=== PATIENT | male | born 1985 | race African-American/Black ===

== ENCOUNTER 2021-11-25 13:38 | Emergency (ER) | payer SELFPAY ==
--- OUTSIDE RECORDS SUMMARY | 2021-11-25 13:40 | XMS REPORT | Continuity of Care Document ---
:1985 Author Organization [facility] t Address [address] [place] [address] Care Team Providers Name Role Phone Unavailable Unavailable Unavailable Payers Payer Name Policy Type Policy Number Effective Date Expiration Date S ource Problems This patient has no known problems. Allergies, Adverse Reactions, Alerts Allergy Allergy Status Severity Reaction(s) Onset Inactive Treating Comm ents Source Name Type Date Date Clinician No Known DA Active U [facility] All[facility]ie 11-30 [place] s 00:00: d 00 [facility] Medications This patient has no known medications. Procedures This patient has no known procedures. Encounters Start End Encounter Admission Attending Care Care Encounter Source Date/Time Date/Time Type Type Clinicians Facility Department ID 2018-11-29 2018-11-29 [facility] [id number] [address] [place] [address] 22:19:00 22:19:00 Health Results Test Description Test Time Test Comments Results Result Comments Source URINALYSIS COMPLETE 2018 00:40:00 Test Item Value Reference Range Interpretation Comme nts UA COLOR (test code = COLU) YELLOW discript YEL/STRAW UA APPEARANCE (test code = APPU) CLEAR discript CLEAR UA GLUCOSE DIPSTICK (test code = DGLUU) NEGATIVE mg/dL NEG UA BILIRUBIN DIPSTICK (test code = BILU) NEGATIVE mg/dL NEG UA KETONE DIPSTICK (test code = KETU) TRACE mg/dL NEG UA SPECIFIC GRAVITY (test code = SGU) 1.025 SG 1.005-1.030 UA BLOOD DIPSTICK (test code = ELSIE) TRACE mg/DL NEG UA PH DIPSTICK (test code = ELDER) 6.0 pH UNITS 5.0-7.0 UA PROTEIN DIPSTICK (test code = PROU) NEGATIVE mg/dL NEG UA UROBILINIOGEN DIPSTICK (test code = URO) 0.2 mg/dL <2.0 UA NITRITE DIPSTICK (test code = DARBY) NEGATIVE SCREEN NEG UA LEUKOCYTE ESTERASE DIPSTICK (test code = LEUU) NEGATIVE Leuk/mcL NEGATIVE UA WBC (test code = WBCU) 1-3 #WBC/HPF 0-3 UA RBC (test code = RBCU) 1-3 #RBC/HPF 0-3 UA SQUAMOUS CELLS (test code = SQU) TRACE /HPF NONE UA MUCUS (test code = MUCU) TRACE /LPF NONE SEEN URINALYSIS [id number] 00:31:00 Test Item Value Reference Range Interpretation Comments UA COLOR (test code = COLU) YELLOW discript YEL/STRAW UA APPEARANCE (test code = CLEAR discript CLEAR APPU) UA GLUCOSE DIPSTICK (test NEGATIVE mg/dL NEG code = DGLUU) UA BILIRUBIN DIPSTICK (test NEGATIVE mg/dL NEG code = BILU) UA KETONE DIPSTICK (test TRACE mg/dL NEG code = KETU) UA SPECIFIC GRAVITY (test 1.025 SG 1.005-1.030 code = SGU) UA BLOOD DIPSTICK (test TRACE mg/DL NEG code = ELSIE) UA PH DIPSTICK (test code = 6.0 pH UNITS 5.0-7.0 ELDER) UA PROTEIN DIPSTICK (test NEGATIVE mg/dL NEG code = PROU) UA UROBILINIOGEN DIPSTICK 0.2 mg/dL <2.0 (test code = URO) UA NITRITE DIPSTICK (test NEGATIVE SCREEN NEG code = DARBY) UA LEUKOCYTE ESTERASE NEGATIVE Leuk/mcL NEGATIVE DIPSTICK (test code = LEUU) BASIC METABOLIC [id number] 00:13:00 Test Item Value Reference Range Interpretation Comments SODIUM (test code = NA) 139 mmol/L 134-147 N POTASSIUM (test code = 3.2 mmol/L 3.4-5.0 L K) CHLORIDE (test code = 102 mmol/L 100-108 N CL) CARBON DIOXIDE (test 31 mmol/L 21-32 N code = CO2) ANION GAP (test code = 6.0 GAP calc 4.0-15.0 N GAP) GLUCOSE (test code = 107 MG/DL 70-110 N GLU) BLOOD UREA NITROGEN 13 MG/DL 7-18 N (test code = BUN) GLOMERULAR FILTRATION >=60 max estimate >60 RATE (test code = GFR) estGFR CREATININE (test code = 1.2 MG/DL 0.8-1.3 N CREAT) CALCIUM (test code = CA) 8.0 MG/DL 8.5-10.1 L HEPATIC FUNCTION [id number] 00:13:00 Test Item Value Reference Range Interpretation Comments TOTAL PROTEIN (test code = PROT) 7.2 G/DL 6.4-8.2 N ALBUMIN (test code = ALB) 3.7 G/DL 3.4-5.0 N BILIRUBIN TOTAL (test code = 0.30 MG/DL 0.2-1.2 N BILT) BILIRUBIN DIRECT (test code = < 0.10 MG/DL 0.00-0.30 N BILD) BILIRUBIN INDIRECT (test code = 0.20 MG/DL 0.2-1.2 N BILIND) SGOT/AST (test code = AST) 25 Unit/L 15-37 N SGPT/ALT (test code = ALT) 20 Unit/L 12-78 N ALKALINE PHOSPHATASE TOTAL (test 43 Unit/L 50-136 L code = ALKP) CBC W/AUTO [id number] 23:49:00 Test Item Value Reference Range Interpretation Comments WHITE BLOOD CELL (test code = 9.3 K/mm3 3.5-11.0 N WBC) RED BLOOD CELL (test code = RBC) 4.78 M/mm3 4.70-6.10 N HEMOGLOBIN (test code = HGB) 13.3 G/DL 12.3-15.9 N HEMATOCRIT (test code = HCT) 40.4 % 35.8-46.7 N MEAN CELL VOLUME (test code = 84.5 Fl 86.3-98.9 L MCV) MEAN CELL HGB (test code = MCH) 27.8 pg 28.9-34.4 L MEAN CELL HGB CONCETRATION (test 32.9 G/DL 32.1-34.5 N code = MCHC) RED CELL DISTRIBUTION WIDTH (test 14.0 SD 11.5-14.5 N code = RDW) PLATELET COUNT (test code = PLT) 227.0 K/mm3 150-450 N MEAN PLATELET VOLUME (test code = 10.30 fL 7.0-9.6 H MPV) NEUTROPHIL % (test code = NT%) 62.5 % 40-76 N LYMPHOCYTE % (test code = LY%) 25.3 % 20.5-51.1 N MONOCYTE % (test code = MO%) 9.8 % 1.7-9.3 H EOSINOPHIL % (test code = EO%) 2.2 % 0.0-6.0 N BASOPHIL % (test code = BA%) 0.2 % 0.0-2.0 N NEUTROPHIL # (test code = NT#) 5.79 K/mm3 1.8-7.6 N LYMPHOCYTE # (test code = LY#) 2.3 K/mm3 0.6-3.0 N MONOCYTE # (test code = MO#) 0.9 K/mm3 0.2-1.5 N EOSINOPHIL # (test code = EO#) 0.2 K/mm3 0.0-0.4 N BASOPHIL # (test code = BA#) 0.0 K/mm3 0.0-0.2 N MANUAL DIFF REQUIRED (test code = NO DIFF/SCN CRITERIA MDIFF) - XR ABDOMEN 1 [id number] 23:36:00 Name: EZEQUIEL CAMACHO [facility] : 1985 Age/S: 32 / M [id number] Unit #: [id number] Loc: [place] [address] Phys: Kaley Richardson MD Acct: [id number] Dis Date: Status: REG ER PHONE #: [phone] Exam Date: 12/20/2018 2336 FAX #: Reason: Abdominal Pain EXAMS: CPT: [id number] XR ABDOMEN 1 V [id number] Fluoro Time: DAP (Gy m2): Air Kerma (mGy): - XR ABDOMEN 1 V Location:9 After hours services provided 12/20/2018 11:35 PM Indication: Abdominal Pain Comparison: Not available Findings: Nonobstructive bowel gas pattern. No free air or free fluid. No radiopaque calculi. The bones are unremarkable. Impression: No acute abdominal abnormality. at 2336 Reported and signed by: Rodrigo Wright M.D. CC: Kaley Richardson MD PAGE 1 Signed Report N chandrika: EZEQUIEL CAMACHO [facility] : 1985 Age/S: 32 / M [id number] Unit #: [id number] Loc: [place] [address] Phys: Kaley Richardson MD Acct: [id number] Dis Date: Status: REG ER PHONE #: [phone] Exam Date: 12/20/2018 2334 FAX #: Reason: Abdominal Pain EXAMS: CPT: [id number] XR ABDOMEN 1 V [id number] Fluoro Time: DAP (Gy m2): Air Kerma (mGy): <Continued> Technologist: Patric Parmar, RT(R)(CT); Chuy Ribeiro, RT(R)(CT) Trnazb Date/Time: 12/20/2018 (6989) [email or web address] Orig Print D/T: S: 12/20/2018 (4845) PAGE 2 Signed Report
[2021-11-25] MEDS ORDERED: ONDANSETRON 4 MG (ODT) TAB ONE (15:37)
[2021-11-25] MEDS ORDERED: FAMOTIDINE 20 MG TAB ONE (15:37)
[2021-11-25 16:36] LABS: SARS-COV-2 RT PCR NEGATIVE (NEGATIVE)
--- NOTE | 2021-11-25 16:47 | ER ---
Nurse's Notes [facility] Name: Meño Quiroga Age: 35 yrs Sex: Male : 1985 Arrival Date: 11/25/2021 Time: 13:39 Bed 10 Private MD: Diagnosis: Nausea with vomiting, unspecified Presentation: 11/25 14:21 Chief complaint: Patient states: Sudden onset of feeling hot, sweaty, fatigue, ll1 sleepiness, acid reflux with 1 episode of N/V since last night. + decreased urination since last night, but no dysuria. Coronavirus screen: Vaccine status: Patient reports being unvaccinated. Client denies travel out of the [place] in the last 14 days. fatigue, nausea, vomiting. Ebola Screen: Patient denies travel to an Ebola-affected area in the 21 days before illness onset. Initial Sepsis Screen: Does the patient meet any 2 criteria? No. Patient's initial sepsis screen is negative. Does the patient have a suspected source of infection? Yes: Acute abdominal pain. Risk Assessment: Do you want to hurt yourself or someone else? Patient reports no desire to harm self or others. Onset of symptoms was November 24, 2021. 14:21 Method Of Arrival: Ambulatory ll1 14:21 Acuity: ASHLEE 4 ll1 Triage Assessment: 14:23 General: Appears in no apparent distress. Behavior is calm, cooperative, appropriate ll1 for age. Pain: Complains of pain in abdomen Quality of pain is described as aching. Neuro: No deficits noted. Cardiovascular: No deficits noted. Respiratory: No deficits noted. GI: Abdomen is round Reports lower abdominal pain, upper abdominal pain, cramping, nausea, vomiting. Historical: - Allergies: 14:20 No Known Allergies; ll1 - PMHx: 14:20 None; ll1 - PSHx: 14:20 None; ll1 - Immunization history:: Client reports having NOT received the Covid vaccine. Flu vaccine status is unknown. - Social history:: Smoking status: Patient reports the use of cigarette tobacco products, cigars. Screenin:40 Abuse screen: Denies threats or abuse. Nutritional screening: No deficits noted. ll1 Tuberculosis screening: No symptoms or risk factors identified. Fall Risk Gait- Weak (10 pts.). Total Garcia Fall Scale indicates No Risk (0-24 pts). Assessment: 15:18 Reassessment: No changes from previously documented assessment. Patient and/or family ll1 updated on plan of care and expected duration. Pain level reassessed. Patient is alert, oriented x 3, equal unlabored respirations, skin warm/dry/pink. 15:40 Reassessment: No changes from previously documented assessment. Patient and/or family ll1 updated on plan of care and expected duration. Pain level reassessed. Patient is alert, oriented x 3, equal unlabored respirations, skin warm/dry/pink. 16:40 Reassessment: No changes from previously documented assessment. Patient and/or family ll1 updated on plan of care and expected duration. Pain level reassessed. Patient is alert, oriented x 3, equal unlabored respirations, skin warm/dry/pink. 17:17 GI: Bowel sounds present X 4 quads. Abd is soft and non tender X 4 quads. ll1 Vital Signs: 14:21 BP 159 / 107; Pulse 60; Resp 17; Temp 98.0; Pulse Ox 100% ; Weight 104.33 kg; Pain 4/10;ll1 17:17 BP 111 / 72; Pulse 52; Resp 16; ll1 ED Course: 13:39 Patient arrived in ED. ds1 14:20 Arm band placed on. ll1 14:23 Triage completed. ll1 15:18 Rosi Camarena RN is Primary Nurse. ll1 15:18 Patient placed in an exam room, on a stretcher. ll1 15:27 Binh Ruelas PA is PHCP. cp 15:27 Binh Landry MD is Attending Physician. cp 15:40 Patient has correct armband on for positive identification. Bed in low position. Call ll1 light in reach. Side rails up X 1. Cardiac monitoring not applicable on this patient. 17:17 No provider procedures requiring assistance completed. Patient did not have IV access ll1 during this emergency room visit. Administered Medications: 15:40 Drug: Zofran (Ondansetron) 4 mg Route: PO; ll1 17:19 Follow up: Response: No adverse reaction ll1 15:40 Drug: Pepcid (famotidine) 20 mg Route: PO; ll1 17:18 Follow up: Response: No adverse reaction ll1 Outcome: 16:47 Discharge ordered by . cp 17:18 Discharged to home ambulatory. ll1 17:18 Condition: stable 17:18 Discharge instructions given to patient, Instructed on discharge instructions, follow up and referral plans. medication usage, Demonstrated understanding of instructions, follow-up care, medications, Prescriptions given X 2. 17:19 Patient left the ED. ll1 Signatures: Kiley Lopez ds1 Binh Ruelas PA PA cp Lewis, Lynsay, RN RN ll1
--- NOTE | 2021-11-25 16:48 | EDPHYS ---
Physician Documentation [facility] Name: Meño Quiroga Age: 35 yrs Sex: Male : 1985 Arrival Date: 11/25/2021 Time: 13:39 Bed 10 Private MD: YANN Physician Binh Landry HPI: 11/25 15:40 This 35 yrs old Black Male presents to ER via Ambulatory with complaints of Abdominal cp Pain, Fever. 15:40 The patient presents with abdominal pain. Onset: The symptoms/episode began/occurred cp last night. Associated signs and symptoms: Pertinent positives: nausea and vomiting, fever, Pertinent negatives: diarrhea. The symptoms are described as burning. Patient reports heartburn worse. Historical: - Allergies: 14:20 No Known Allergies; ll1 - PMHx: 14:20 None; ll1 - PSHx: 14:20 None; ll1 - Immunization history:: Client reports having NOT received the Covid vaccine. Flu vaccine status is unknown. - Social history:: Smoking status: Patient reports the use of cigarette tobacco products, cigars. ROS: 15:45 Constitutional: Negative for fever, poor PO intake. cp 15:45 Eyes: Negative for injury, pain, redness, and discharge. cp 15:45 ENT: Negative for drainage from ear(s), ear pain, difficulty swallowing, difficulty handling secretions. 15:45 Cardiovascular: Negative for chest pain, palpitations. 15:45 Respiratory: Negative for cough, shortness of breath, wheezing. 15:45 Abdomen/GI: Positive for abdominal pain, nausea and vomiting, Negative for diarrhea, constipation. 15:45 Neuro: Negative for altered mental status, weakness. 15:45 All other systems are negative. Exam: 15:50 Constitutional: The patient appears in no acute distress, alert, awake, non-toxic, well cp developed, well nourished, obese. 15:50 Head/Face: Normocephalic, atraumatic. cp 15:50 Eyes: Periorbital structures: appear normal, Conjunctiva: normal, no exudate, no injection, Sclera: no appreciated abnormality, Lids and lashes: appear normal, bilaterally. 15:50 ENT: External ear(s): are unremarkable, Ear canal(s): are normal, clear, TM's: dullness, bilaterally, Nose: is normal, Mouth: Lips: moist, Oral mucosa: moist, Posterior pharynx: Airway: no evidence of obstruction, patent. 15:50 Neck: ROM/movement: is normal, is supple, without pain, no range of motions limitations, no meningismus, Lymph nodes: no appreciated lymphadenopathy. 15:50 Chest/axilla: Inspection: normal. 15:50 Cardiovascular: Rate: normal, Rhythm: regular. 15:50 Respiratory: the patient does not display signs of respiratory distress, Respirations: normal, no use of accessory muscles, no retractions, labored breathing, is not present, Breath sounds: are clear throughout, no decreased breath sounds, no stridor, no wheezing. 15:50 Abdomen/GI: Inspection: obese Bowel sounds: active, all quadrants, Palpation: abdomen is soft and non-tender, in all quadrants, rebound tenderness, is not appreciated, voluntary guarding, is not appreciated, involuntary guarding, is not appreciated. 15:50 Back: pain, is absent, ROM is normal. 15:50 Neuro: Orientation: to person, place \\T\\ time. Mentation: is normal. Vital Signs: 14:21 BP 159 / 107; Pulse 60; Resp 17; Temp 98.0; Pulse Ox 100% ; Weight 104.33 kg; Pain 4/10;ll1 17:17 BP 111 / 72; Pulse 52; Resp 16; ll1 MDM: 15:35 Patient medically screened. cp 15:45 Differential diagnosis: appendicitis, cholecystitis, Cholelithiasis, gastritis, cp non-specific abd pain, pancreatitis, Peptic Ulcer Disease, urinary tract infection. 16:46 Data reviewed: vital signs, nurses notes, lab test result(s). cp 16:46 Counseling: I had a detailed discussion with the patient and/or guardian regarding: the cp historical points, exam findings, and any diagnostic results supporting the discharge/admit diagnosis, lab results, to return to the emergency department if symptoms worsen or persist or if there are any questions or concerns that arise at home. Response to treatment: the patient's symptoms have markedly improved after treatment, and as a result, I will discharge patient. ED course: VSS. Nausea improved. No vomiting observed while monitoring patient in ED. Exam of abdomen unremarkable. Will discharge to home for continued monitoring. 11/25 15:34 Order name: COVID-19/FLU A+B (Document "Date of Onset" if Symptomatic); Complete Time: iw 16:38 11/25 16:39 Interpretation: Reviewed. cp 11/25 15:50 Order name: Urine Dipstick-Ancillary (obtain specimen); Complete Time: 15:52 cp Administered Medications: 15:40 Drug: Zofran (Ondansetron) 4 mg Route: PO; ll1 17:19 Follow up: Response: No adverse reaction ll1 15:40 Drug: Pepcid (famotidine) 20 mg Route: PO; ll1 17:18 Follow up: Response: No adverse reaction ll1 Disposition Summary: 11/25/21 16:47 Discharge Ordered Location: Home cp Problem: new cp Symptoms: have improved cp Condition: Stable cp Diagnosis - Nausea with vomiting, unspecified cp Followup: cp - With: Private Physician - When: 2 - 3 days - Reason: Worsening of condition Discharge Instructions: - Discharge Summary Sheet cp - Nausea, Adult cp Forms: - Medication Reconciliation Form cp - Thank You Letter cp - Antibiotic Education cp - Prescription Opioid Use cp Prescriptions: - Protonix 40 mg Oral Tablet - take 1 tablet by ORAL route once daily; 30 tablet; Refills: 0, Product cp Selection Permitted - Zofran 4 mg Oral Tablet - take 1 tablet by ORAL route every 12 hours As needed; 20 tablet; Refills: 0, cp Product Selection Permitted Addendum: 11/27/2021 07:22 Co-signature as Attending Physician, Binh Landry MD I agree with the assessment and c keenan plan of care. Signatures: Dispatcher [employer] EDBinh Mandel MD MD cha Williams, Irene RN Binh Manzo PA PA cp Lewis, Lynsay, RN RN ll1 Corrections: (The following items were deleted from the chart) 11/25 16:48 16:47 Nausea cp cp
[2021-11-25 17:26] VITALS: TEMP 98; O2SAT 100
[2021-11-25 17:28] VITALS: BP 111/72
== END 2021-11-25 17:19 | disposition home or self-care (01) ==
LOC: ER 13:38
DX: R11.2 Nausea with vomiting, unspecified (principal); Z20.822 Contact with and (suspected) exposure to COVID-19; Z72.0 Tobacco use
CPT/HCPCS: 0240U; 99283

== ENCOUNTER 2023-08-12 12:06 | Emergency (ER) | payer SELFPAY ==
--- OUTSIDE RECORDS SUMMARY | 2023-08-12 12:13 | XMS REPORT | Continuity of Care Document ---
:[address] [facility] t Address [address] [place] [address] Care Team Providers Name Role Phone Unavailable Unavailable Unavailable Payers Payer Name Policy Type Policy Number Effective Date Expiration Date S ource Problems Condition Condition Condition Status Onset Resolution Last Treating Co mments Source Name Details Category Date Date Treatment Clinician Date Abdominal Abdominal Disease Active [facility] pain, pain, Health generalize generalize d d Nausea and Nausea and Disease Active H arris vomiting vomiting Health Diarrhea Diarrhea Disease Active [facility] Allergies, Adverse Reactions, Alerts Allergy Allergy Status Severity Reaction(s) Onset Inactive Treating Comm ents Source Name Type Date Date Clinician No Known DA Active [facility] 11-30 [facility] Social History Social Habit Start Date Stop Date Quantity Comments Source Gender identity [facility] alth Sexual orientation [facility] Sex Assigned At [birth year] [facility] Health 00:00:00 00:00:00 Medications This patient has no known medications. Procedures This patient has no known procedures. Plan of Care Planned Activity Planned Date Details Comments Source Future Scheduled Test 2023-08-30 00:00:00 IMM Influenza [facility] Seasonal (>/= 19 yrs) [code = IMM Influenza Seasonal (>/= 19 yrs)] Future Scheduled Test 1987-06-20 00:00:00 COVID-19 Vaccine (#1) [facility] [code = COVID-19 Vaccine (#1)] Encounters Start End Encounter Admission Attending Care Care Encounter Source Date/Time Date/Time Type Type Clinicians Facility Department ID 2018-11-29 2018-11-29 Emergency [facility] [id number] 1 [place] 22:19:00 22:19:00 Health Results Test Description Test [...] = MUCU) TRACE /LPF NONE SEEN URINALYSIS [id number] 00:31:00 Test Item Value Reference Range Interpretation [...] DIPSTICK (test code = LEUU) BASIC METABOLIC [id number] 00:13:00 Test Item Value Reference Range Interpretation [...] CA) 8.0 MG/DL 8.5-10.1 L HEPATIC FUNCTION [id number] 00:13:00 Test Item Value Reference Range Interpretation [...] 50-136 L code = ALKP) CBC W/AUTO [id number] 23:49:00 Test Item Value Reference Range Interpretation [...] DIFF/SCN CRITERIA MDIFF) - XR ABDOMEN 1 [id number] 23:36:00 Name: EZEQUIEL CAMACHO [facility] : 1985 Age/S: 32 / M [address] Unit #: [id number] Loc: [place] [address] Phys: Kaley Richardson MD Acct: [id number] Dis Date: Status: REG ER PHONE #: [phone] Exam Date: 12/20/2018 2334 FAX #: Reason: Abdominal Pain EXAMS: CPT: [id number] XR ABDOMEN 1 V 32122 Fluoro Time: DAP (Gy m2): Air Kerma (mGy): - XR ABDOMEN 1 V Location:9 After hours services provided 12/20/2018 11:35 PM Indication: Abdominal Pain Comparison: Not available Fin dings: Nonobstructive bowel gas pattern. No free air or free fluid. No radiopaque calculi. The bonesare unremarkable. Impression: No acute abdominal abnormality. at 2336 Reported and signed by: Rodrigo Wright M.D. CC: Kaley Richardson MD PAGE 1 Signed Report Name: EZEQUIEL CAMACHO [facility] : 1985 Age/S: 32 / M [id number] Unit #: [id number] Loc: [place] [address] Phys: Fawn Richardson Acct: [id number] Dis Date: Status: REG ER PHONE #: [phone] Exam Date: 12/20/2018 2334 FAX#: Reason: Abdominal Pain EXAMS: CPT: [id number] XR ABDOMEN 1 V 98983 Fluoro Time: DAP (Gy m2): Air Kerma (mGy): (Continued) Technologist: Patric Parmar, RT(R)(CT); Chuy Ribeiro RT(R)(CT) Trnakb Date/Time: 12/20/2018 (2336) [email or web address] Orig Print D/T: S: 12/20/2018 (8013) PAGE 2 Signed Report Notes Date/Time Note Provider Source 2018-12-20 23:33:00-00:00 [facility] ([facility]) EMERGENCY PROVIDER REPORT REPORT#:[id number] REPORT STATUS: Signed DATE:12/20/18 TIME:2332 PATIENT: EZEQUIEL CAMACHO UNIT #: [id number] ROOM/BED: : 86 AGE: 33 SEX: M PCP PHYS: No Primar y or Family Physician SERVICE AUTHOR: Kaley Richardson MD * ALL edits or amendments must be made on the el [place]/computer document * HPI-Abd Pain M Under 40 General Confirmed Patient Yes Patient Type New patient Initial Greet Date/Time 12/20/182306 Presentation Chief Complaint Abdominal pain, Vomiting moderat e Hx Obtained From Patient Onset Occurred Days ago (3) Symptom Duration Since onset Progression since Onset Constant Caused by No trauma by history Location RLQ Quality Painful, Throbbing Severity: Onset Moderate Severity: Current Pain level 2 out of 10 Associated with Reports: Vomiting. Denies: Back pain, Chest pain , Chills, Constipation, Diarrhea, Dysuria, Fever, Nausea, Shortness of b reath, Urinary frequency, Urinary tract symptoms. Exacerbated by Nothing Relieved by Nothing Context Immunization Status General Unknown Free Text HPI Notes Free Text HPI Notes 32 y/o gentleman without sig. PMHx presents to E D with c/o RLQ abd pain, x3 days. Pt was last seen here 11/30/2018 and was dc'd home with Cipro, falgyl, and zantac. Pt states that he was advised to "return here to follow up", prompting him to be seen here in ED ag ain for the same symptoms. He states abd pain feels like "bloating" and "throbbi ng" in nature. He currently rate pain a 2 out of 10 on pain scale. Assoc. sx include multipl e episodes of non-bilious vomiting. He denies back pain, CP, chills, constipation, diar james, dysuria, fever, nausea, SOB, urinary frequency, and UTI sx. Portions of this section were scribed by Elba Calhoun on 12/21/18 at 0035 Risk-Abd Pain M Under 40 )( Torsion Risk factors reviewed Portions of this section were scribed by Elba Calhoun on 12/20/18 at 2341 Review of Systems ROS Statements All systems rev neg except as marked. Focused Review of Systems GI Reports: Abdominal pain (RLQ), Vomiting. Portions of this section were scribed by Elba Calhoun on 12/20/18 at 2341 Past Medical History - Adult Stated Complaint ABD PROBLEMS Allergies Coded Allergies: No Known Allergies (11/30/18) Home Medications Reported Medications DICYCLOMINE (BENTYL) 20 MG PO QID Review of Nursing Notes Rev avail, and agree Pt reports no significant: Past medical history Past Surgical History: Reports: Appendectomy. Additional Surgical History ankle surgery Smoking status for patients 13 years old or olde r: Current some day smoker Other Social History Local resident Ambulatory Status Independent Portions of this section were scribed by Elba Calhoun on 12/21/18 at 0034 Physical Exam Vital Signs Vital Signs First Documented: Result Date Time Pulse Ox 98 12/20 2306 B/P 159/92 12/20 2306 B/P Mean 114 12/20 2306 O2 Delivery Room air 12/20 2306 Temp 36.4 12/20 2306 Pulse 65 12/20 2306 Resp 16 12/20 2306 Last Documented: Result Date Time Pulse Ox 97 12/21 0040 B/P 126/73 12/21 0040 B/P Mean 90 12/21 0040 O2 Delivery Room air 12/21 0040 Pulse 64 12/21 0040 Resp 16 12/21 0040 Temp 36.4 12/20 2306 Review of Vital Signs Reviewed Focused PE General/Const General/Const Awake, Alert Resp/Chest Respiratory/Chest Breath sounds NL, Breath soun ds = bilat, No respiratory distress Cardiovascular Cardiovascular Heart rate NL, Regular rhythm, H eart sounds NL Abdomen/GI Abdomen/GI Soft, Non-tender, No guarding, No re bound MS Back Back Inspection NL, Full range of motion, Pain less range of motion, Non- tender Free Text PE Notes Free Text PE Notes General/Const General/Const Awake, Alert MS Head Head Atraumatic, Normocephalic Eyes Eyes Atraumatic, No scleral icterus MS Neck Neck Atraumatic, No meningismus, Full range of m otion neck easily mobile Resp/Chest no labored bs, no audible wheezing Cardiovascular Cardiovascular no cyanosis, Ext: moving all 4 ext, no swelling/ cyanosis not ed on UE Bl Skin Skin no apparent rashes, Dry, Intact Neurologic Neurologic Oriented X3, Speech NL, Gait NL ENT Atraumatic, Airway patent, Mucous membranes mois t, Ext aud canal NL, Gums/ dentition NL, Portions of this section were scribed by Elba Calhoun on 12/21/18 at 0003 Interpretation Diagnostics Lab Results Interpretation Results Laboratory Tests 12/20/18 2340: [Embedded Image Not Available] Laboratory Tests: 12/21 12/20 0014 2340 Chemistry Sodium (134 - 147 mmol/L) 139 Potassium (3.4 - 5.0 mmol/L) 3.2 L Chloride (100 - 108 mmol/L) 102 Carbon Dioxide (21 - 32 mmol/L) 31 Anion Gap (4.0 - 15.0 GAP calc) 6.0 BUN (7 - 18 MG/DL) 13 Creatinine (0.8 - 1.3 MG/DL) 1.2 Glomerular Filtr Rate (>60 estGFR) >=60 max est imate Glucose (70 - 110 MG/DL) 107 Calcium (8.5 - 10.1 MG/DL) 8.0 L Total Bilirubin (0.2 - 1.2 MG/DL) 0.30 Direct Bilirubin (0.00 - 0.30 MG/DL) < 0.10 Indirect Bilirubin (0.2 - 1.2 MG/DL) 0.20 AST (15 - 37 Unit/L) 25 ALT (12 - 78 Unit/L) 20 Total Alk Phosphatase (50 - 136 Unit/L) 43 L Total Protein (6.4 - 8.2 G/DL) 7.2 Albumin (3.4 - 5.0 G/DL) 3.7 Hematology WBC (3.5 - 11.0 K/mm3) 9.3 RBC (4.70 - 6.10 M/mm3) 4.78 Hgb (12.3 - 15.9 G/DL) 13.3 Hct (35.8 - 46.7 %) 40.4 MCV (86.3 - 98.9 Fl) 84.5 L MCH (28.9 - 34.4 pg) 27.8 L MCHC (32.1 - 34.5 G/DL) 32.9 RDW (11.5 - 14.5 SD) 14.0 Plt Count (150 - 450 K/mm3) 227.0 MPV (7.0 - 9.6 fL) 10.30 H Neut % (Auto) (40 - 76 %) 62.5 Lymph % (Auto) (20.5 - 51.1 %) 25.3 Wilbarger % (Auto) (1.7 - 9.3 %) 9.8 H Eos % (Auto) (0.0 - 6.0 %) 2.2 Baso % (Auto) (0.0 - 2.0 %) 0.2 Neut # (Auto) (1.8 - 7.6 K/mm3) 5.79 Lymph # (Auto) (0.6 - 3.0 K/mm3) 2.3 Wilbarger # (Auto) (0.2 - 1.5 K/mm3) 0.9 Eos # (Auto) (0.0 - 0.4 K/mm3) 0.2 Baso # (Auto) (0.0 - 0.2 K/mm3) 0.0 Add Manual Diff (CRITERIA DIFF/SCN) NO Urines Urine Color (YEL/STRAW discript) YELLOW Urine Appearance (CLEAR discript) CLEAR Urine pH (5.0 - 7.0 pH UNITS) 6.0 Ur Specific Sledge (1.005 - 1.030 SG) 1.025 Urine Protein (NEG mg/dL) NEGATIVE Urine Glucose (UA) (NEG mg/dL) NEGATIVE Urine Ketones (NEG mg/dL) TRACE Urine Blood (NEG mg/DL) TRACE Urine Nitrite (NEG SCREEN) NEGATIVE Urine Bilirubin (NEG mg/dL) NEGATIVE Urine Urobilinogen (<2.0 mg/dL) 0.2 Ur Leukocyte Esterase (NEGATIVE Leuk/mcL) NEGAT HANNA Urine RBC (0 - 3 #RBC/HPF) 1-3 Urine WBC (0 - 3 #WBC/HPF) 1-3 Ur Squamous Epith Cells (NONE /HPF) TRACE Urine Mucus (NONE SEEN /LPF) TRACE Recent Impressions: RADIOLOGY - XR ABDOMEN 1 V 12/20 2333 Report Impression - Status: SIGNED Entered: 12/20/20182338 Impression: No acute abdominal abnormality. Impression By: [email or web address] - Rodrigo phipps M.D. Lab Imaging Statement Laboratory radiographic studies reviewed and con sidered in the medical decision-making. Point of Care Testing Pulse Oximetry Pulse Ox % 98 On: Room air Interpretation Interpreted by me, Pulse oximetr y normal Time 2307 Portions of this section were scribed by Elba Calhoun on 12/21/18 at 0035 Re-Evaluation MDM Free Text MDM Notes Free Text MDM Notes 32 y/o gentleman with HPI and PE as above. VSS. 1. UA 2. XR 3. reassesment unhanged cxurrently asymptomatic Pt will be dc'd home. Instru cted to call for f/u appointment with PCP and return to the ED for new or worsening symptoms. )( Re-Evaluation/Progress #1 Time of Re-Eval 003 )( Re-Eval Status Improved Portions of this section were scribed by Elba Calhoun on 12/21/18 at 0035 Patient Discharge Departure Vital Signs/Condition Vital Signs First Documented: Result Date Time Pulse Ox 98 12/20 2306 B/P 159/92 12/20 2306 B/P Mean 114 12/20 2306 O2 Delivery Room air 12/20 2306 Temp 36.4 12/20 2306 Pulse 65 12/20 2306 Resp 16 12/20 2306 Last Documented: Result Date Time Pulse Ox 97 12/21 0040 B/P 126/73 12/21 0040 B/P Mean 90 12/21 0040 O2 Delivery Room air 12/21 0040 Pulse 64 12/21 0040 Resp 16 12/21 004 Temp 36.4 12/20 2306 All vital signs available at the time of this en try have been reviewed. Condition Stable Clinical Impression Clinical Impression Primary Impression: Abdominal pain Disposition Decision Discharge )( Discharged to Home Yes )( Time 003 )( Date 12/21/18 Discharge/Care Plan Counseled Regarding Diagnosi s, Lab results, Imaging studies, Prescriptions, Need for follow-up, Smoking cessation, When to return to ED Prescriptions bentyl Discharge Note I have spoken with the patie nt and/or caregivers. I have explained the patient's condition, diagnoses and david atment plan based on the information available to me at this time. I have answered the patient's and/ or caregiver's questions and addressed any concerns. The patient and/or careg mode have as good an understanding of the patient 's diagnosis, condition and treatment plan as can be expected at this point. The vital signs have bee n stable. The patient's condition is stable and appr opriate for discharge from the emergency department. The patient will pursue further outpatient evalu ation with the primary care physician or other designated or consulting phys ician as outlined in the discharge instructions. The patient and/or caregivers are agreeable to this plan of care and follow-up instructions have been exp lained in detail. The patient and/or caregivers have received these instructio ns in written format and have expressed an understanding of the discharge inst ructions. The patient and/or caregivers are aware that any significant change in condition or worsening of symptoms should prompt an immediate return to [facility] or the closest emergency department or a call to 911. Quality Measures BP F/U for HTN Referred for BP f/u < 4wk, F/u wi PCP/other doc Smoking Cessation Screened, tobacco user, Tobacc o cess intervention Supervising Physician Note Scribe Statement Jo Ann Calhoun, 12/20/18 5844, scribing for and in the presence of [Dr. Richardson]. Signed By: Jo Ann Calhoun, 12/20/18 4251 Provider Scribed Statement I personally performed the s ervices described in this documentation and reviewed the documentation that was dictated to the scrib e(s) in my presence, and it accurately records my words and actions. Brianda Richardson, 12/20/18 Portions of this section were scribed by Elba Calhoun on 12/21/18 at 0034 Electronically Signed by Kaley Richardson MD on at 0128 [facility] #: [id number] END OF REPORT
[2023-08-12] MEDS ORDERED: FAMOTIDINE 20 MG/2 ML VIAL IV ONE (12:35)
[2023-08-12 12:38] LABS: Absolute Lymphocytes (CBC) 1.2 K/uL (0.7-4.9); Hematocrit 36.4 % (39.6-49.0); Lymphocytes % 11.3 % (15.3-44.8); MCV 86.7 fL (80-100); MPV 7.9 fL (7.6-11.3); Platelets 178 thou/uL (152-406)
[2023-08-12 13:02] LABS: ALT/SGPT < 10 U/L (16-61); AST/SGOT 8 U/L (15-37); Albumin 3.2 g/dL (3.4-5.0); Alkaline Phosphatase 39 U/L (45-117); BUN Blood Urea Nitrogen 9 mg/dL (7-18); Bicarbonate 28 mEq/L (21-32); Bilirubin Total 0.6 mg/dL (0.2-1.0); Glomerular Filtration Rate 112 ml/min (=/>90); Glucose Level 94 mg/dL (74-106); Lipase 405 U/L (13-75); Potassium 3.2 mEq/L (3.5-5.1); Protein, Total 6.1 g/dL (6.4-8.2); Sodium Level 141 mEq/L (136-145)
--- NOTE | 2023-08-12 14:24 | RAD REPORT ---
EXAM DESCRIPTION: CT - Abdomen Pelvis W Contrast - 08/12/2023 1:40 pm CLINICAL HISTORY: ABD PAIN COMPARISON: No comparisons TECHNIQUE: Thin cut axial CT imaging of the abdomen and pelvis was performed following intravenous a dministration of 100 mL Isovue 300. Multiplanar reformats were generated and reviewed. All CT scans are performed using dose optimization technique as appropriate and may include automated exposure control or mA/KV adjustment according to patient size. FINDINGS: No suspicious findings in the lung bases. The liver, spleen, and pancreas show no suspicious findings. Gallbladder and biliary tree are also wi thout suspicious finding. Symmetric renal function is seen with no hydronephrosis or suspicious renal mass. Mild fluid distention within small and large bowel loops with short-segment air-fluid levels. Long se gments of small bowel demonstrating mild mucosal prominent enhancement. No significant bowel dilation or a transition point. No free air, free fluid or inflammatory stranding. No hernia, mass or bulky l ymphadenopathy. The urinary bladder is without significant finding. No suspicious bony findings. IMPRESSION: Findings suggestive of enterocolitis or mild ileus.
[2023-08-12] MEDS ORDERED: ONDANSETRON 4 MG/2 ML VIAL ONE (15:19)
--- NOTE | 2023-08-12 15:23 | EDPHYS ---
Physician Documentation [facility] Name: Meño Quiroga Age: 37 yrs Sex: Male : 1985 Arrival Date: 08/12/2023 Time: 12:06 Bed 14 Private MD: ED Physician Abdiaziz Gipson HPI: 08/12 15:06 This 37 yrs old Black Male presents to ER via EMS with complaints of kb Nausea/Vomiting/Diarrhea. 15:06 The patient presents to the emergency department with nausea, vomiting, diarrhea. kb Onset: The symptoms/episode began/occurred 5 day(s) ago. Possible causes: unknown. The symptoms are aggravated by nothing. The symptoms are alleviated by nothing. The patient has not recently seen a physician. 15:07 Associated signs and symptoms: Pertinent positives: diarrhea, nausea, vomiting, kb Pertinent negatives: fever. Severity of symptoms: At their worst the symptoms were mild moderate in the emergency department the symptoms are unchanged. The patient has not experienced similar symptoms in the past. Historical: - Allergies: 12:15 No Known Allergies; me1 - Home Meds: 12:15 None [Active]; me1 - PMHx: 12:15 Hypertensive disorder; me1 - PSHx: 12:15 Appendectomy; me1 - Immunization history:: Adult Immunizations unknown. - Social history:: Smoking status: Patient uses street drugs, marijuana. ROS: 14:53 Constitutional: Negative for fever, chills, and weight loss. kb 14:53 Abdomen/GI: Positive for abdominal pain, nausea, vomiting, and diarrhea. 14:53 All other systems are negative. Exam: 14:53 Constitutional: This is a well developed, well nourished patient who is awake, alert, kb and in no acute distress. Head/Face: Normocephalic, atraumatic. ENT: Moist Mucous membranes Cardiovascular: Regular rate Respiratory: Respirations even and unlabored. No increased work of breathing. Talking in full sentences Skin: Warm, dry with normal turgor. Normal color. MS/ Extremity: Pulses equal, no cyanosis. Neurovascular intact. Full, normal range of motion. Neuro: Awake and alert, GCS 15, oriented to person, place, time, and situation. Moves all extremities. Normal gait. 14:53 Abdomen/GI: Inspection: abdomen appears normal, Bowel sounds: normal, Palpation: soft, in all quadrants, mild abdominal tenderness, in all quadrants. Vital Signs: 12:13 BP 153 / 90; Pulse 55; Resp 16; Temp 98.2(O); Pulse Ox 100% on R/A; Weight 78.02 kg; me1 Height 5 ft. 7 in. ; Pain 5/10; 13:00 BP 147 / 78; Pulse 57; Resp 17; Pulse Ox 100% on R/A; me1 15:26 BP 133 / 88; Pulse 75; Resp 16; Pulse Ox 100% on R/A; me1 12:13 Body Mass Index 26.94 (78.02 kg, 170.18 cm) me1 12:13 Pain Scale: Adult me1 MDM: 12:10 Patient medically screened. kb 14:54 Differential diagnosis: Nonspecific abd pain, gastritis, diverticulitis, viral kb gastroenteritis. Data reviewed: vital signs, nurses notes. Consideration of Admission/Observation Patient was admitted/placed on observation. Escalation of care including admission/observation considered. Historians other than the Patient: EMS: [facility]. 15:06 Counseling: I had a detailed discussion with the patient and/or guardian regarding the kb historical points, exam findings, and any diagnostic results supporting the discharge/admit diagnosis, lab results, radiology results, the need for outpatient follow up, a family practitioner, to return to the emergency department if symptoms worsen or persist or if there are any questions or concerns that arise at home. 08/12 12:12 Order name: CBC with Diff; Complete Time: 12:42 kb 08/12 12:12 Order name: CMP; Complete Time: 13:04 kb 08/12 12:12 Order name: Lipase; Complete Time: 13:04 kb 08/12 12:12 Order name: CT Abd/Pelvis - IV Contrast Only; Complete Time: 14:32 kb 08/12 12:12 Order name: IV Saline Lock; Complete Time: 12:19 kb 08/12 12:12 Order name: Labs collected and sent; Complete Time: 12:19 kb 08/12 14:58 Order name: PO challenge; Complete Time: 15:25 kb Administered Medications: 12:30 Drug: Famotidine IVP 20 mg Route: IVP; Site: right antecubital; me1 15:37 Follow up: Response: No adverse reaction me1 15:10 Drug: Ondansetron IVP 4 mg Route: IVP; Site: right antecubital; me1 15:30 Follow up: Response: No adverse reaction; Nausea is decreased me1 15:26 Drug: Potassium Chloride PO 40 mEq Route: PO; me1 15:30 Follow up: Response: No adverse reaction me1 Disposition: 17:45 Co-signature as Attending Physician, Abdiaziz Gipson MD I reviewed the patient's care rt provided by the Advanced Practice Provider and agree with the diagnosis and treatment plan. Disposition Summary: 08/12/23 15:22 Discharge Ordered Location: Home kb Condition: Stable kb Diagnosis - Enterocolitis kb Followup: kb - With: Emergency Department - When: As needed - Reason: Worsening of condition Followup: kb - With: Private Physician - When: 2 - 3 days - Reason: Recheck today's complaints, Continuance of care, Re-evaluation by your physician Discharge Instructions: - Discharge Summary Sheet kb - Viral Gastroenteritis, Adult, [id number] kb Forms: - Medication Reconciliation Form kb - Thank You Letter kb - Antibiotic Education kb - Prescription Opioid Use kb - Patient Portal Instructions kb - Leadership Thank You Letter kb Prescriptions: - ondansetron 4 mg Oral Tablet,disintegrating - take 1 tablet by ORAL route every 6 hours As needed; 12 tablet; Refills: 0, kb Product Selection Permitted - dicyclomine 20 mg Oral Tablet - take 1 tablet by ORAL route 4 times per day As needed; 20 tablet; Refills: 0, kb Product Selection Permitted Signatures: Dispatcher [employer] Elina Rey, RUDDY FLORESP-CkAbdiaziz Brock MD MD rt Kadi Thompson, RN RN me1
--- NOTE | 2023-08-12 15:23 | ER ---
Nurse's Notes [facility] Name: Meño Quiroga Age: 37 yrs Sex: Male : 1985 Arrival Date: 08/12/2023 Time: 12:06 Bed 14 Private MD: Diagnosis: Enterocolitis Presentation: 08/12 12:13 Chief complaint: Patient states: c/o n/v/d since Thursday. Coronavirus screen: Vaccine me1 status: Patient reports being unvaccinated. diarrhea, nausea, vomiting. Ebola Screen: No symptoms or risks identified at this time. 12:13 Method Of Arrival: EMS: [facility] nh1 12:13 Initial Sepsis Screen: Does the patient meet any 2 criteria? No. Patient's initial nh1 sepsis screen is negative. Does the patient have a suspected source of infection?. Risk Assessment: Do you want to hurt yourself or someone else? Patient reports no desire to harm self or others. Onset of symptoms was August 08, 2023. 12:13 Acuity: ASHLEE 2 me1 Triage Assessment: 12:15 General: Appears comfortable, well groomed, well developed, well nourished, Behavior is me1 calm, cooperative, appropriate for age. Pain: Complains of pain in epigastric area Pain does not radiate. Pain currently is 5 out of 10 on a pain scale. Quality of pain is described as squeezing, tightness Pain began gradually, 2-3 days ago. Neuro: Level of Consciousness is awake, alert, obeys commands, Oriented to person, place, time, situation, Appropriate for age. Cardiovascular: Capillary refill < 3 seconds Patient's skin is warm and dry. Respiratory: Airway is patent Respiratory effort is even, unlabored, Respiratory pattern is regular, symmetrical. GI: Abdomen is non-distended, Reports diarrhea, nausea, vomiting, since Thursday. : Denies burning with urination, urinary frequency. Historical: - Allergies: 12:15 No Known Allergies; me1 - Home Meds: 12:15 None [Active]; me1 - PMHx: 12:15 Hypertensive disorder; me1 - PSHx: 12:15 Appendectomy; me1 - Immunization history:: Adult Immunizations unknown. - Social history:: Smoking status: Patient uses street drugs, marijuana. Screenin:[facility] Fall Risk Assessment (Adult) History of falling in the last 3 months, me1 including since admission No falls in past 3 months (0 pts) Confusion or Disorientation No (0 pts) Intoxicated or Sedated No (0 pts) Impaired Gait No (0 pts) Mobility Assist Device Used No (0 pt) Altered Elimination No (0 pt) Score/Fall Risk Level 0 - 2 = Low Risk. Abuse screen: Denies threats or abuse. Nutritional screening: No deficits noted. Tuberculosis screening: No symptoms or risk factors identified. Assessment: 12:17 General: See triage assessment.. GI: Reports diarrhea, nausea, vomiting, since Thursday.me1 Vital Signs: 12:13 BP 153 / 90; Pulse 55; Resp 16; Temp 98.2(O); Pulse Ox 100% on R/A; Weight 78.02 kg; me1 Height 5 ft. 7 in. ; Pain 5/10; 13:00 BP 147 / 78; Pulse 57; Resp 17; Pulse Ox 100% on R/A; me1 15:26 BP 133 / 88; Pulse 75; Resp 16; Pulse Ox 100% on R/A; me1 12:13 Body Mass Index 26.94 (78.02 kg, 170.18 cm) me1 12:13 Pain Scale: Adult nh1 ED Course: 12:10 Patient arrived in ED. kb 12:10 [facility] Ford [facility]C [facility]. kb 12:10 Abdiaziz Gipson MD is Attending Physician. kb 12:12 Kadi Thompson, SUKH is Primary Nurse. me1 12:15 Triage completed. me1 12:15 Arm band placed on Patient placed in an exam room. me1 12:17 Patient has correct armband on for positive identification. Bed in low position. Call nh1 light in reach. Side rails up X2. Provided Education on: POC. Verbalized understanding.. 12:17 No provider procedures requiring assistance completed. Maintain EMS IV. Dressing me1 intact. Site clean \T\ dry. Gauge \T\ site: 18 gauge RAC.. 12:30 CBC with Diff Sent. me1 12:30 CMP Sent. me1 12:30 Lipase Sent. me1 13:38 CT completed. Patient tolerated procedure well. Note: 22 g diffusics to rt ac, due to mi ems iv not being suitable for power injection. Note: by manuela in ct. Patient moved to CT via wheelchair. Patient moved back from CT. 13:42 CT Abd/Pelvis - IV Contrast Only In Process Unspecified. EDMS 15:30 IV discontinued, intact, bleeding controlled, No redness/swelling at site. Pressure me1 dressing applied. Administered Medications: 12:30 Drug: Famotidine IVP 20 mg Route: IVP; Site: right antecubital; me1 15:37 Follow up: Response: No adverse reaction me1 15:10 Drug: Ondansetron IVP 4 mg Route: IVP; Site: right antecubital; me1 15:30 Follow up: Response: No adverse reaction; Nausea is decreased me1 15:26 Drug: Potassium Chloride PO 40 mEq Route: PO; me1 15:30 Follow up: Response: No adverse reaction me1 Medication: 12:17 VIS not applicable for this client. me1 Outcome: 15:22 Discharge ordered by . kb 15:31 Discharged to home ambulatory, with family. me1 15:31 Condition: stable 15:31 Discharge instructions given to patient, family, Instructed on discharge instructions, follow up and referral plans. medication usage, Demonstrated understanding of instructions, follow-up care, medications, Prescriptions given X 2. 15:36 Patient left the ED. me1 Signatures: Dispatcher [employer] Elina Rey, [employer]-C [employer]-Jayant Aguilar Michelle, RN RN me1
[2023-08-12] MEDS ORDERED: POTASSIUM CL SA 10 MEQ TAB PO ONE (15:36)
[2023-08-12 15:59] VITALS: TEMP 98.2; O2SAT 100
[2023-08-12 16:01] VITALS: BP 133/88
== END 2023-08-12 15:36 | disposition home or self-care (01) ==
LOC: ER 12:06
DX: K52.9 Noninfective gastroenteritis and colitis, unspecified (principal)
CPT/HCPCS: 36415; 74177; 80053; 83690; 85025; 96374; 96375; 99285; J2405; Q9967

== ENCOUNTER 2023-10-29 11:13 | Emergency (ER) | payer SELFPAY ==
--- OUTSIDE RECORDS SUMMARY | 2023-10-29 11:45 | XMS REPORT | Continuity of Care Document ---
:1985 Author Organization [facility] Address [address] [place] [address] Care Team Providers Name Role Phone PCP, PATIENT DOES NOT HAVE A Primary Care Physician Unavaila ble YE WALKER Attending Clinician Unavailable Ye Walker MD Attending Clinician YE WALKER Admitting Clinician Unavailable Payers Payer Name Policy Type Policy Number Effective Date Expiration Date S ource Problems Condition Condition Condition Status Onset Resolution Last Treating Co mments Source Name Details Category Date Date Treatment Clinician Date Abdominal Abdominal Disease Active Chaz ris pain, pain, Health generalize generalize d d Nausea and Nausea and Disease Active H arris vomiting vomiting Health Diarrhea Diarrhea Disease Active [facility] Allergies, Adverse Reactions, Alerts Allergy Allergy Status Severity Reaction(s) Onset Inactive Treating Comm ents Source Name Type Date Date Clinician No Known DA Active U [facility] All[facility]ie 11-30 [place] [facility] NO KNOWN Drug Active Univers ALLERGIE Class ity of [facility] Social History Social Habit Start Date Stop Date Quantity Comments Source Gender identity [facility] Sexual orientation [facility] Sex Assigned At [birth year] [facility] 00:00:00 00:00:00 Medical Branch Smoking Status Start Date Stop Date Source Tobacco smoking consumption [facility] Branch Medications Ordered Filled Start Stop Current Ordering Indication Dosage Frequency Signature Comments Components Source Medication Medication Date Date Medication? Clinician (SIG) Name Name iopamidol 2022- Yes [id number] 80mL 80 mL, Univers (ISOVUE 08-15 Intravenou ity o f 370-500 mL) 07:30: 07:30 s, ONCE, 1 [place] injection 00 :00 dose, On Medica l 80 mL Sat Branch 08/15/23 at 0230, Routine NaCl 0.9% 2022- No 1000mL at 999 Uni vers (NS) bolus 08-15 mL/hr, ity of infusion 07:15: 07:19 1,000 mL, Uli as 1,000 mL 00 :00 IV Medical Piggyback, Branch ONCE, 1 dose, On 08/15/23 at 0215, STAT KCL 2022- No 40meq 40 mEq, Univers (KLOR-CON 08-15 Oral, ity of M20) tablet 06:45: 06:55 [place]CE, 1 [place] 40 mEq 00 :00 dose, On Medical Sat Branch 08/15/23 at 0145, BETTY NaCl 0.9% 2022- No 1000mL at 999 Uni vers (NS) bolus 08-15 mL/hr, ity of infusion 06:30: 07:00 1,000 mL, Uli as 1,000 mL 00 :00 IV Medical Piggyback, Branch ONCE, 1 dose, On 08/15/23 at 0130, STAT proMETHazin 2022- No 25mg 25 mg, IV Univers e 08-15 Piggyback, ity of (PHENERGAN) 05:45: 05:56 [place]CE[place] 1 [place] 25 mg in 00 :00 dose, On Medical NaCl 0.9% Sat Branch (NS) 50 mL 08/15/23 at IV 0045, BETTY piggyback proMETHazin 2022-0 Yes [id number] 25mg Take 1 Univers e 25 mg 9-16 tablet by ity of tablet 00:00: mouth [place] 00 every 6 Medical (six) Branch hours as needed for Nausea and Vomiting (N/V). dicyclomine Yes [id number] 20mg Take 1 Univers 20 mg 9-16 tablet by ity of tablet 00:00: mouth 3 [place] 00 (three) Medical times [place] daily as needed for Abdominal pain. ciprofloxac 2022- Yes [id number] 500mg Take 1 Univers in HCl 500 08-15 tablet by ity of mg tablet 00:00: 04:59 mouth in Uli as 00 :00 the Medical morning Branch and 1 tablet in the evening. Do all this for 5 days. Vital Signs Vital Name Observation Time Observation Value Comments Source Systolic blood 2023-08-15 07:00:00 142 mm[Hg] [facility] Diastolic blood 2023-08-15 07:00:00 83 mm[Hg] [facility] Heart rate 2023-08-15 07:00:00 58 /min [facility] Respiratory rate 2023-08-15 07:00:00 23 /min [facility] Oxygen saturation in 2023-08-15 07:00:00 99 /min [facility] Arterial blood by [facility] Pulse oximetry [place] Body temperature 2023-08-15 05:38:00 36.06 Maria Fernanda [facility] Body height 2023-08-15 05:38:00 170.2 cm [facility] Body weight 2023-08-15 05:38:00 78.019 kg [facility] BMI 2023-08-15 05:38:00 26.94 kg/m2 [facility] Procedures Procedure Date / Time Performed Performing Clinician Shraddha e CT ABDOMEN PELVIS W 2023-08-15 06:32:25 Ye Walker [facility] CONTRAST [facility] LIPASE 2023-08-15 05:53:00 Ye Walker [facility] COMP. METABOLIC PANEL 2023-08-15 05:53:00 Ye Walker [facility] ([id number]) [facility] ETHANOL 2023-08-15 05:53:00 Ye Walker [facility] CBC WITH DIFF 2023-08-15 05:53:00 Ye Walker [facility] NOTICE OF PRIVACY 2023-08-15 05:28:08 Doctor Unassigned, No Univ [facility] PRACTICES Name Medical Branch CONSENT/REFUSAL FOR 2023-08-15 05:27:47 Doctor [facility]assigned, [facility] AND Name Medical Branch TREATMENT Plan of Care Planned Activity Planned Date Details Comments Source Future Scheduled Test 2023-08-30 00:00:00 IMM Influenza [facility] Seasonal (>/= 19 yrs) [code = IMM Influenza Seasonal (>/= 19 yrs)] Future Scheduled Test 1986-06-20 00:00:00 COVID-19 Vaccine (#1) [facility] [code = COVID-19 Vaccine (#1)] Encounters Start End Encounter Admission Attending Care Care Encounter Source Date/Time Date/Time Type Type Clinicians Facility Department ID 2023-08-15 2023-08-15 Emergency X VASIL, [facility] ERT [id number] Univers 00:34:00 02:23:00 YE wei [facility] 2023-08-15 2023-08-15 Emergency Vasut, [facility] [id number] Univers 00:34:00 02:23:00 Ye TALLEY 350.1.13.10 i [facility] 4.2.7.2.686 [facility] [phone] [place] [id number] [place] 2018-11-29 2018-11-29 Emergency [facility] MED [id number] 1 [place] 22:19:00 22:19:00 Health Results Test Description Test [...] = MUCU) TRACE /LPF NONE SEEN URINALYSIS [id number] 00:31:00 Test Item Value Reference Range Interpretation [...] DIPSTICK (test code = LEUU) BASIC METABOLIC [id number] 00:13:00 Test Item Value Reference Range Interpretation [...] CA) 8.0 MG/DL 8.5-10.1 L HEPATIC FUNCTION [id number] 00:13:00 Test Item Value Reference Range Interpretation [...] 50-136 L code = ALKP) CBC W/AUTO [id number] 23:49:00 Test Item Value Reference Range Interpretation [...] DIFF/SCN CRITERIA MDIFF) - XR ABDOMEN 1 [id number] 23:36:00 Name: EZEQUIEL CAMACHO [facility] : 1985 Age/S: 32 / M [id number] Unit #: [id number] Loc: [place] [address] Phys: Kaley Richardson MD Acct: [id number] Dis Date: Status: REG ER PHONE #: [phone] Exam Date: 12/20/2018 2334 FAX #: Reason: Abdominal Pain EXAMS: CPT: [id number] XR ABDOMEN 1 V 27986 Fluoro Time: DAP (Gy m2): Air Kerma [...] PAGE 1 Signed Report Name: EZEQUIEL CAMACHO [place] : 1985 Age/S: 32 / M [id number] Unit #: [id number] Loc: [place] [address] Phys: Kaley Richardson MD Acct: [id number] Dis Date: Status: REG ER PHONE #: [phone] Exam Date: 12/20/2018 2331 FAX #: Reason: Abdominal Pain EXAMS: CPT: [id number] XR ABDOMEN 1 V 66663 Fluoro Time: DAP (Gy m2): Air Kerma (mGy): (Continued) Technologist: Patric Parmar, RT(R)(CT); Chuy Ribeiro, RT(R)(CT) Trnscb Date/Time: 12/20/2018 (1383) tCORINAR.[email or web address] Orig Print D/T: S: 12/20/2018 (2493) PAGE 2 Signed Report Notes Date/Time Note Provider Source 2023-08-15 0936-53-79V09:22:16Formatting of this Dinah roberts [facility] 02:22:16 note might be different from the RN original. Awake, alert oriented X4, respiratory even and unlabored,skin w/d color appropriate for race, moves all ext well, pt encouraged to follow up with pcp and or return as neededPt given printed and verbal discharge instructions regarding vomiting, Enteritis , patient verbralized understanding and signature obtained, patient denies any other concerns. Prescriptions providedDiscussed phenergan side affects and to avoid driving/operating machinery/or engaging in activities requiring alertness while taking.Advised to seek medical attention for new/prolonged/worsening of symptoms, No adverse reaction to meds given in ER noted upon dischargePt [facility] 58825-9Unspcebvq department ChjhDR1488-61-80N18:23:10Emergency department NoteTXT1.2.840.590992.1.13.104.2.7.2.727 879|[id number] for patient nexz50070-1IanrKL407776459Gmuhpw J Hoot RNUT[address] [id number] OCQOHVUBAADPPCFWVP5383-61-07X14:23:101.2 .840.095682.1.72.3.15|1.2.840.971885.1.1 [id number] 2023-08-15 1027-39-73A07:40:13Formatting of this [facility] 00:40:13 note might be different from the original.Pt arrives ambulatory to ED c/o N/V/D for the past week. He reports that he was taking aprox 8-10 Xanax daily for a few months and stopped taking them and then these symptoms started. He did go to [facility] and they told him it was viral and sent him home with Zofran, he says that it did not help him and he has not gotten any better, so he came in to be evaluated. 68965-9Htorqudbx department Triage yzscVM8802-33-42F94:44:33[facility] Triage noteTXT1.2.840.501816.1.13.104.2.7.2.727 879|[id number] for patient kwhw79546-5Dkzhrnscp department NoteLN[address] [id number] SMCDKKJATQBGLJGORW7804-96-33S00:44:331.2 .840.397653.1.72.3.15|1.2.840.426786.1.1 3.104.2.7.2.727879_[id number] 2023-08-15 7031-08-53X24:28:00Formatting of this [facility] 00:28:00 note is different from the original.[facility] Emergency Department NotePatient Name: Ezequiel CamachoDate of : 1985 37 year old maleTreatment Room: TX4/HL1Zjwaygc Record Number: [id number] Care Physician: [facility] DEPT OF CORRECTIONPatient Escorted by: Family [5]Mode of Arrival: Personal means [1]EMS Treatment Prior to ED Arrival:DEPUTY [place] treatment: None Travel and Exposure Screening:SymptomsDoes patient have any of these symptoms?: (not recorded)Exposure ScreeningHas patient had contact with someone with a communicable disease in the last month?: (not recorded)Diseases exposed to:: (not recorded)Is Patient ?: (not recorded)Exposure Date: (not recorded)Chief Complaint:Chief Complaint Patient presents with Vomiting Nausea Diarrhea History of Present Illness:37 y.o. male with nausea, vomiting and diarrhea x 1 week. Denies fever/chills. Denies cough, fever, chills at this timePast Medical History/Immunizations:No past medical history on file.Tetanus received in last 5 years: Yes Allergies:No Known AllergiesPast Social History:Substance & Sexual Activity No substance use or sexual activity history on file. Past Surgical History:No past surgical history on file.Review of Systems: Review of Systems Constitutional: Positive for fatigue. Negative for activity change, chills and fever. HENT: Negative. Eyes: Negative. Respiratory: Negative. Breasts: Negative. Cardiovascular: Negative. Gastrointestinal: Positive for abdominal pain, diarrhea, nausea and vomiting. Negative for abdominal distention, anal bleeding, blood in stool, constipation and rectal pain. Genitourinary: Negative. Musculoskeletal: Negative. Skin: Negative. Neurological: Negative. Psychiatric/Behavioral: Negative. Endocrine: Endocrine negativePhysical Exam: ED Triage Vitals Weight 08/15/2337 78 kg (172 lb) Actual or estimated 08/15/2337 Estimated by patient/family report Height 08/15/2337 1.702 m (5' 7") BP 08/15/23 0050 (!) 152/80 Pulse 08/15/2337 56 Resp 08/15/2337 14 Temp 08/15/2337 36.1 ?C (96.9 ?F) Temp source 08/15/2337 Oral SpO2 08/15/2337 100 % Measured on 08/15/2337 Room air Physical ExamVitals and nursing note reviewed. Constitutional: General: He is not in acute distress. Appearance: He is not ill-appearing, toxic-appearing or diaphoretic. HENT: Head: Normocephalic and atraumatic. Mouth/Throat: Mouth: Mucous membranes are dry. Eyes: Pupils: Pupils are equal, round, and reactive to light. Cardiovascular: Rate and Rhythm: Normal rate. Pulses: Normal pulses. Pulmonary: Effort: Pulmonary effort is normal. No respiratory distress. Abdominal: General: There is no distension. Palpations: Abdomen is soft. There is no mass. Tenderness: There is no abdominal tenderness. There is no right CVA tenderness, left CVA tenderness, guarding or rebound. Hernia: No hernia is present. Musculoskeletal: General: Normal range of motion. Skin: General: Skin is warm. Capillary Refill: Capillary refill takes less than 2 seconds. Neurological: General: No focal deficit present. Mental Status: He is alert and oriented to person, place, and time. Psychiatric: Mood and Affect: Mood normal. Behavior: Behavior normal. Radiology:CT ABDOMEN PELVIS W CONTRAST Final Result ORDERING PHYSICIAN:YE WALKER CLINICAL INFORMATION: Abdominal pain, acute, nonlocalized COMPARISON: None Technique: CT of the abdomen and pelvis was performed after the administration of IV contrast. No p.o. contrast was used. Multiplanar reformats were also obtained. This study was performed according to ALARA principle for radiation dose reduction. Findings: There is no evidence of obstructive uropathy. No suspicious renal parenchymal abnormalities are seen. Liver, gallbladder, spleen, adrenal glands, pancreas show no evidence of gross abnormalities. There is no evidence of bowel obstruction. There is diffuse small bowel mucosal edema. Multiple colonic air-fluid levels are also present. Prominent lymph nodes are also seen in the central mesenteric fat. These measure up to 1.5 cm in shortest axis. No free intraperitoneal air or fluid are present. No pathologically enlarged lymph nodes are seen. The lung bases are clear. There are no suspicious focal osseous lesions. IMPRESSION 1. Diffuse small bowel mucosal edema indicative of an enteritis. This could be infectious or noninfectious. 2. Prominent central mesenteric lymph nodes. These are likely reactive. 3. No bowel obstruction, free air, free fluid, or focal loculated intraperitoneal fluid collections. END OF REPORT RL: [address] [facility]: [id number] Lab Results:Lab Results CBC WITH DIFF - Abnormal Result Value Ref Range WBC 18.60 (*) 4.20 - 10.70 10*3/?L RBC 5.72 (*) 4.26 - 5.52 10*6/?L HGB 16.5 (*) 12.2 - 16.4 g/dL HCT 49.8 (*) 38.4 - 49.3 % MCV 87.1 81.7 - 95.6 fL MCH 28.8 26.1 - 32.7 pg MCHC 33.1 31.2 - 35.0 g/dL RDW-SD 43.0 38.5 - 51.6 fL RDW-CV 13.5 12.1 - 15.4 % PLT 297 150 - 328 10*3/?L MPV 10.5 9.8 - 13.0 fL NRBC/100 WBC 0.0 0.0 - 10.0 /100 WBCs NRBC x10^3 <0.01 10*3/?L GRAN MAT (NEUT) % 70.4 % IMM GRAN % 1.30 % LYMPH % 12.2 % MONO % 13.6 % EOS % 2.3 % BASO % 0.2 % GRAN MAT x10^3(ANC) 13.10 (*) 1.99 - 6.95 10*3/uL IMM GRAN x10^3 0.24 (*) 0.00 - 0.06 10*3/uL LYMPH x10^3 2.26 1.09 - 3.23 10*3/uL MONO x10^3 2.53 (*) 0.36 - 1.02 10*3/uL EOS x10^3 0.43 0.06 - 0.53 10*3/uL BASO x10^3 0.04 0.01 - 0.09 10*3/uL COMP. METABOLIC PANEL (01494) - Abnormal NA 138 135 - 145 mmol/L K 3.0 (*) 3.5 - 5.0 mmol/L CL 99 98 - 108 mmol/L CO2 TOTAL 28 23 - 31 mmol/L AGAP 11 2 - 16 BUN 6 (*) 7 - 23 mg/dL GLUCOSE 100 70 - 110 mg/dL CREATININE 0.97 0.60 - 1.25 mg/dL TOTAL BILI 0.5 0.1 - 1.1 mg/dL CALCIUM 8.5 (*) 8.6 - 10.6 mg/dL T PROTEIN 7.3 6.3 - 8.2 g/dL ALBUMIN 4.3 3.5 - 5.0 g/dL ALK PHOS 44 34 - 122 U/L ALTv 13 5 - 50 U/L AST(SGOT) 20 13 - 40 U/L eGFR 87.6 mL/min/1.73m2 LIPASE - Normal LIPASE 43 0 - 220 U/L ETHANOL ALCOHOL <10 mg/dL URINE DRUG (IMMUNOASSAY) - COMPREHENSIVE DRUG SCREEN EKG:If EKG completed, see Procedure Note. Orders and Treatments:Orders Placed This Encounter Procedures CT ABDOMEN PELVIS W CONTRAS T CBC WITH DIFF COMP. METABOLIC PANEL (8005 3) LIPASE URINE DRUG (IMMUNOASSAY) - COMPREHENSIVE DRUG SCREEN ETHANOL Orders Placed This Encounter Medications proMETHazine (PHENERGAN) 25 mg in NaCl 0.9% (NS) 50 mL IV piggyback NaCl 0.9% (NS) bolus infusion 1,000 mL NaCl 0.9% (NS) bolus infusion 1,000 mL iopamidol (ISOVUE 370-500 mL) injection 80 mL KCL (KLOR-CON M20) tablet 40 mEq First Provider Eval:ED Events None No notes of EC Admission Criteria type on file.ED COURSEDiagnosis/Impression as of 08/15/23207 Vomiting, unspecified vomiting type, unspecified whether nausea present Enteritis Procedures: ProceduresMDM:Medical Decision MakingAmount and/or Complexity of Data ReviewedLabs: ordered.Radiology: ordered.RiskPrescription drug management. A) Gastroenteritis Disposition/Condition: Home, Phenergan prn, rest, hydration, ER warnings, f/u PCP, Bentyl prnED Disposition None Discharge Medications:Patient's Medications No medications on file Follow-up: 44845-1Rojpmnhew Emergency department GdukXT2222-68-39W25:02:36Physician Emergency department NoteTXT1.2.840.974692.1.13.104.2.7.2.727 879|[id number] for patient zywu88065-7Mzxrajzkd department NoteLN[address] SbdiLfyiyfvyfEzkbjjwqwFJKK7267893674EYBR PIKGUPSZTNAWYGXBYI1122-44-20N30:02:361.2 .840.950319.1.72.3.15|1.2.840.318173.1.1 3.104.2.7.2.727879_[id number] 2018-12-20 DEaejyudkdj59553307746-39-43Q38:33:00 [facility] 23:33:00 [facility])EMERGENCY PROVIDER REPORTREPORT#:[id number] REPORT STATUS: SignedDATE:12/20/18 TIME:2332 PATIENT: EZEQUIEL CAMACHO UNIT #: [id number]#: [id number] ROOM/BED:: 86 AGE: 33 SEX: M PCP PHYS: No Primary or Family PhysicianSERVICE AUTHOR: Kaley Richardson MD * ALL edits or amendments must be made on the electronic/computer document * HPI-Abd Pain M Under 40 GeneralConfirmed Patient YesPatient Type New patientInitial Greet Date/Time 12/20/182306 PresentationChief Complaint Abdominal pain, Vomiting moderateHx Obtained From PatientOnset Occurred Days ago (3)Symptom Duration Since onsetProgression since Onset ConstantCaused by No trauma by historyLocation RLQQuality Painful, ThrobbingSeverity: Onset ModerateSeverity: Current Pain level 2 out of 10Associated withReports: Vomiting. Denies: Back pain, Chest pain, Chills, Constipation, Diarrhea, Dysuria, Fever, Nausea, Shortness of breath, Urinary frequency, Urinary tract symptoms. Exacerbated by NothingRelieved by Nothing ContextImmunization Status General Unknown Free Text HPI NotesFree Text HPI Notes32 y/o gentleman without sig. PMHx presents to ED with c/o RLQ abd pain, x3 days. Pt was last seen here 11/30/2018 and was dc'd home with Cipro, falgyl, andzantac. Pt states that he was advised to "return here to follow up", prompting him to be seen here in ED again for the same symptoms. He states abd pain feels like "bloating" and "throbbing" in nature. He currently rate pain a 2 out of 10 on pain scale. Assoc. sx include multiple episodes of non-bilious vomiting. He denies back pain, CP, chills, constipation, diarrhea, dysuria, fever, nausea, SOB, urinary frequency, and UTI sx. Portions of this section were scribed by Jo Ann Calhoun on 12/21/18 at 0035 Risk-Abd Pain M Under 40)( Torsion Risk factors reviewed Portions of this section were scribed by Jo Ann Calhoun on 12/20/18 at 2341 Review of Systems ROS StatementsAll systems rev neg except as marked. Focused Review of SystemsGIReports: Abdominal pain (RLQ), Vomiting. Portions of this section were scribed by Jo Ann Calhoun on 12/20/18 at 2341 Past Medical History - AdultStated Complaint ABD PROBLEMSAllergiesCoded Allergies:No Known Allergies (11/30/18) Home MedicationsReported MedicationsDICYCLOMINE (BENTYL) 20 MG PO QID Review of Nursing Notes Rev avail, and agreePt reports no significant: Past medical historyPast Surgical History:Reports: Appendectomy. Additional Surgical Historyankle surgerySmoking status for patients 13 years old or older: Current some day smokerOther Social History Local residentAmbulatory Status Independent Portions of this section were scribed by Jo Ann Calhoun on 12/21/18 at 0034 Physical Exam Vital SignsVital SignsFirst Documented: Result Date Time Pulse Ox 98 12/20 2306 B/P 159/92 12/20 2306 B/P Mean 114 12/20 2306 O2 Delivery Room air 12/20 2306 Temp 36.4 12/20 2306 Pulse 65 12/20 2306 Resp 16 12/20 2306 Last Documented: Result Date Time Pulse Ox 97 12/21 39 B/P 126/73 12/21 39 B/P Mean 90 12/21 39 O2 Delivery Room air 12/21 39 Pulse 64 12/21 39 Resp 16 12/21 39 Temp 36.4 12/20 2306 Review of Vital Signs Reviewed Focused PEGeneral/Const General/Const Awake, AlertResp/Chest Respiratory/Chest Breath sounds NL, Breath sounds = bilat, No respiratory distressCardiovascular Cardiovascular Heart rate NL, Regular rhythm, Heart sounds NLAbdomen/GI Abdomen/GI Soft, Non-tender, No guarding, No reboundMS Back Back Inspection NL, Full range of motion, Painless range of motion, Non-tender Free Text PE NotesFree Text PE NotesGeneral/ConstGeneral/Const Awake, AlertMS HeadHead Atraumatic, NormocephalicEyesEyes Atraumatic, No scleral icterusMS NeckNeck Atraumatic, No meningismus, Full range of motionneck easily mobileResp/Chest no labored bs, no audible wheezingCardiovascularCardiovascular no cyanosis,Ext: moving all 4 ext, no swelling/ cyanosis noted on UE BlSkinSkin no apparent rashes, Dry, IntactNeurologicNeurologic Oriented X3, Speech NL, Gait NLENTAtraumatic, Airway patent, Mucous membranes moist, Ext aud canal NL, Gums/dentition NL, Portions of this section were scribed by Jo Ann Calhoun on 12/21/18 at 0003 Interpretation Diagnostics Lab Results InterpretationResultsLaboratory Tests 12/20/18 2340:[Embedded Image Not Available]Laboratory Tests: 12/21 12/20 0014 2340 Chemistry Sodium (134 - 147 mmol/L) 139 Potassium (3.4 - 5.0 mmol/L) 3.2 L Chloride (100 - 108 mmol/L) 102 Carbon Dioxide (21 - 32 mmol/L) 31 Anion Gap (4.0 - 15.0 GAP calc) 6.0 BUN (7 - 18 MG/DL) 13 Creatinine (0.8 - 1.3 MG/DL) 1.2 Glomerular Filtr Rate (>60 estGFR) >=60 max estimate Glucose (70 - 110 MG/DL) 107 Calcium [...] % (Auto) (20.5 - 51.1 %) 25.3 Snyder % (Auto) (1.7 - 9.3 %) 9.8 H Eos % (Auto) (0.0 - 6.0 %) 2.2 Baso % (Auto) (0.0 - 2.0 %) 0.2 Neut # (Auto) (1.8 - 7.6 K/mm3) 5.79 Lymph # (Auto) (0.6 - 3.0 K/mm3) 2.3 Snyder # (Auto) (0.2 - 1.5 K/mm3) 0.9 Eos # (Auto) (0.0 - 0.4 K/mm3) 0.2 Baso # (Auto) (0.0 - 0.2 K/mm3) 0.0 Add Manual Diff (CRITERIA DIFF/SCN) NO Urines Urine Color (YEL/STRAW discript) YELLOW Urine Appearance (CLEAR discript) CLEAR Urine pH (5.0 - 7.0 pH UNITS) 6.0 Ur Specific Paradox (1.005 - 1.030 SG) 1.025 Urine Protein (NEG mg/dL) NEGATIVE Urine Glucose (UA) (NEG mg/dL) NEGATIVE Urine Ketones (NEG mg/dL) TRACE Urine Blood (NEG mg/DL) TRACE Urine Nitrite (NEG SCREEN) NEGATIVE Urine Bilirubin (NEG mg/dL) NEGATIVE Urine Urobilinogen (<2.0 mg/dL) 0.2 Ur Leukocyte Esterase (NEGATIVE Leuk/mcL) NEGATIVE Urine RBC (0 - 3 #RBC/HPF) 1-3 Urine WBC (0 - 3 #WBC/HPF) 1-3 Ur Squamous Epith Cells (NONE /HPF) TRACE Urine Mucus (NONE SEEN /LPF) TRACE Recent Impressions:RADIOLOGY - XR ABDOMEN 1 V 12/20 2333 Report Impression - Status: SIGNED Entered: 12/20/20182338 Impression: No acute abdominal abnormality.Impression By: Brian - Rodrigo Wright M.D. Lab Imaging StatementLaboratory radiographic studies reviewed and considered in the medical decision-making. Point of Care TestingPulse Oximetry Pulse Ox % 98 On: Room air Interpretation Interpreted by me, Pulse oximetry normal Time 230 Portions of this section were scribed by Jo Ann Calhoun on 12/21/18 at 0035 Re-Evaluation MDM Free Text MDM NotesFree Text MDM Notes32 y/o gentleman with HPI and PE as above. VSS. 1. UA2. XR3. reassesment unhanged cxurrently asymptomatic Pt will be dc'd home. Instructed to call for f/u appointment with PCP and returnto the ED for new or worsening symptoms. )( Re-Evaluation/Progress #1Time of Re-Eval 0030)( Re-Eval Status Improved Portions of this section were scribed by Jo Ann Calhoun on 12/21/18 at 0035 Patient Discharge Departure Vital Signs/ConditionVital SignsFirst Documented: Result Date Time Pulse Ox 98 12/20 2306 B/P 159/92 12/20 2306 B/P Mean 114 12/20 2306 O2 Delivery Room air 12/20 2306 Temp 36.4 12/20 2306 Pulse 65 12/20 2306 Resp 16 12/20 2306 Last Documented: Result Date Time Pulse Ox 97 12/21 39 B/P 126/73 12/21 39 B/P Mean 90 12/21 39 O2 Delivery Room air 12/21 39 Pulse 64 12/21 39 Resp 16 12/21 39 Temp 36.4 12/20 2306 All vital signs available at the time of this entry have been reviewed. Condition Stable Clinical ImpressionClinical ImpressionPrimary Impression: Abdominal pain Disposition DecisionDischarge )( Discharged to Home Yes )( Time 0034 )( Date 12/21/18 Discharge/Care PlanCounseled Regarding Diagnosis, Lab results, Imaging studies, Prescriptions, Needfor follow-up, Smoking cessation, When to return to EDPrescriptionsbentyl Discharge NoteI have spoken with the patient and/or caregivers. I have explained the patient'scondition, diagnoses and treatment plan based on the information available to meat this time. I have answered the patient's and/or caregiver's questions and addressed any concerns. The patient and/or caregivers have as good an understanding of the patient's diagnosis, condition and treatment plan as can beexpected at this point. The vital signs have been stable. The patient's condition is stable and appropriate for discharge from the emergency department. The patient will pursue further outpatient evaluation with the primary care physician or other designated or consulting physician as outlined in the discharge instructions. The patient and/or caregivers are agreeable to this planof care and follow-up instructions have been explained in detail. The patient and/or caregivers have received these instructions in written format and have expressed an understanding of the discharge instructions. The patient and/or caregivers are aware that any significant change in condition or worsening of symptoms should prompt an immediate return to this or the closest emergency department or a call to 911. Quality MeasuresBP F/U for HTN Referred for BP f/u < 4wk, F/u with PCP/other docSmoking Cessation Screened, tobacco user, Tobacco cess intervention Supervising Physician Note Scribe StatementJo Ann Calhoun, 12/20/18 2334, scribing for and in the presence of [Dr. Richardson].Signed By: Jo Ann Calhoun, 12/20/18 2334 Provider Scribed StatementI personally performed the services described in this documentation and reviewedthe documentation that was dictated to the scribe(s) in my presence, and it accurately records my words and actions. Kaley Richardson, 12/20/18 Portions of this section were scribed by Jo Ann Calhoun on 12/21/18 at 0034 at 0128 RPT #: [id number] OF REPORTEDEmergency department [id number].[id number] for patient [id number]
[2023-10-29 12:37] LABS: Absolute Lymphocytes (CBC) 1.3 K/uL (0.7-4.9); Hematocrit 43.5 % (39.6-49.0); Lymphocytes % 17.9 % (15.3-44.8); MCV 86.7 fL (80-100); MPV 8.3 fL (7.6-11.3); Platelets 200 thou/uL (152-406); RBC Red Blood Cell Count 5.02 M/uL (4.33-5.43)
[2023-10-29 12:50] LABS: Albumin 4.4 g/dL (3.4-5.0); Bilirubin Total 1.1 mg/dL (0.2-1.0); Protein, Total 8.4 g/dL (6.4-8.2)
[2023-10-29 12:53] LABS: SARS-CoV-2 Antigen Rapid Res Negative (Negative)
--- NOTE | 2023-10-29 13:03 | RAD REPORT ---
EXAM DESCRIPTION: CT - Abdomen Pelvis W Contrast - 10/29/2023 12:45 pm CLINICAL HISTORY: Abdominal pain COMPARISON: July 2023 TECHNIQUE: Computed axial tomography of the abdomen pelvis was obtained. 100 cc Isovue-300 was admin istered intravenously. Oral contrast was not requested which limits evaluation of bowel and appendix All CT scans are performed using dose optimization technique as appropriate and may include automated exposure control or mA/KV adjustment according to patient size. FINDINGS: The liver, spleen, pancreas, adrenal and kidneys appear unremarkable. There is no evidence of diverticulitis. L appendectomy. Fluid throughout small bowel IMPRESSION: Fluid throughout small bowel may indicate an enteritis
--- NOTE | 2023-10-29 13:43 | ER ---
Nurse's Notes [facility] Name: Meño Quiroga Age: 37 yrs Sex: Male : 1985 Arrival Date: 10/29/2023 Time: 11:13 Bed DX4 Private MD: Diagnosis: Vomiting;Diarrhea, unspecified;Abdominal pain, Generalized;Hypokalemia;Other viral enteritis Presentation: 10/29 11:46 Chief complaint: Spouse and/or significant other states: vomiting and diarrhea for last ko1 2 days, abdominal pain and cramps, confused and weak. Coronavirus screen: At this time, the client does not indicate any symptoms associated with coronavirus-19. Ebola Screen: No symptoms or risks identified at this time. Initial Sepsis Screen: Does the patient meet any 2 criteria? No. Patient's initial sepsis screen is negative. Does the patient have a suspected source of infection? No. Patient's initial sepsis screen is negative. Risk Assessment: Do you want to hurt yourself or someone else? Patient reports no desire to harm self or others. Onset of symptoms is unknown. 11:46 Method Of Arrival: Ambulatory ko1 11:46 Acuity: ASHLEE 3 ko1 Triage Assessment: 11:49 General: Appears in no apparent distress. uncomfortable, Behavior is calm, cooperative, ko1 appropriate for age. Pain: Complains of pain in abdomen. GI: Reports lower abdominal pain, upper abdominal pain, diarrhea, nausea. Historical: - Allergies: 11:49 No Known Allergies; ko1 - PMHx: 11:49 Hypertensive disorder; ko1 - Immunization history:: Adult Immunizations up to date. - Social history:: Smoking status: Patient uses street drugs, marijuana. - Family history:: not pertinent. Screenin:06 [facility] ED Fall Risk Assessment (Adult) Score/Fall Risk Level 0 - 2 = Low Risk jl7 Oriented to surroundings, Maintained a safe environment. Abuse screen: Denies threats or abuse. Denies injuries from another. Nutritional screening: No deficits noted. Tuberculosis screening: No symptoms or risk factors identified. Assessment: 14:06 Reassessment: Pt reports nausea is not as bad as it was yesterday, medicated, fluids jl7 started, awaiting ERD to discuss results and POC and for fluids to finish infusing for discharge. 15:05 Reassessment: No changes from previously documented assessment. Patient and/or family ll1 updated on plan of care and expected duration. Pain level reassessed. 15:06 GI: Abdomen is flat. ll1 Vital Signs: 11:46 BP 148 / 91; Pulse 59; Resp 14; Temp 97.3; Pulse Ox 99% ; ko1 15:05 BP 139 / 71; Pulse 55; Resp 16; Pulse Ox 99% ; ll1 ED Course: 11:18 Patient arrived in ED. mg5 11:22 Binh Landry MD is Attending Physician. yudelka 11:49 Triage completed. ko1 11:49 Arm band placed on right wrist. Patient placed in waiting room, Patient notified of ko1 wait time. 12:28 SARS RAPID Sent. bc6 12:28 CBC with Diff Sent. bc6 12:28 CMP Sent. bc6 12:28 Lipase Sent. bc6 12:28 Missed attempt(s): 22 gauge in right antecubital area. bc6 12:46 CT Abd/Pelvis - IV Contrast Only In Process Unspecified. EDMS 13:42 Kamini Bradford MD is Referral Physician. yudelka 14:06 Patient has correct armband on for positive identification. Provided Education on: use jl7 of medications. 15:05 No provider procedures requiring assistance completed. IV discontinued, intact, ll1 bleeding controlled, No redness/swelling at site. Pressure dressing applied. Administered Medications: 14:05 Drug: Famotidine IVP 20 mg IVP once; dilute with 10 mL 0.9% NaCl; give over 2 minutes jl7 Route: IVP; Site: right antecubital; 14:54 Follow up: Response: No adverse reaction ll1 14:05 Drug: Potassium PO Effervescent Tablet 50 mEq PO once; dissolve in 4 ounces of water or jl7 juice Route: PO; 14:54 Follow up: Response: No adverse reaction ll1 14:06 Drug: NS 0.9% IV 1000 ml IV at 1 bolus Per protocol; 1000 mL bolus Route: IV; Rate: 1 jl7 bolus; Site: right antecubital; 14:55 Follow up: Response: No adverse reaction; IV Status: Completed infusion; IV Intake: ll1 1000ml 14:06 Drug: Ondansetron IVP 4 mg IVP once; over 2 minutes Route: IVP; Site: right antecubital;jl7 14:55 Follow up: Response: No adverse reaction ll1 Medication: 14:06 VIS not applicable for this client. jl7 Intake: 14:55 IV: 1000ml; Total: 1000ml. 1 Outcome: 13:42 Discharge ordered by . yudelka 15:06 Discharged to home ambulatory, 1 15:06 Condition: stable 15:06 Discharge instructions given to patient, Instructed on discharge instructions, follow up and referral plans. medication usage, Demonstrated understanding of instructions, follow-up care, medications, Prescriptions given X 4, 15:06 Patient left the ED. 1 Signatures: Dispatcher [employer] EDKS Binh Landry MD MD cha Leal, Jahala RN RN [email or web address] Rosi Camarena RN RN [email or web address] Shelby Perdomo RN RN ko1 Radha Marina Flower Tomas mg5 Corrections: (The following items were deleted from the chart) 11:50 11:49 PSHx: Appendectomy; ko1 ko1 14:08 14:06 Inserted saline lock: jl7 jl7
--- NOTE | 2023-10-29 13:43 | EDPHYS ---
Physician Documentation [facility] Name: Meño Quiroga Age: 37 yrs Sex: Male : 1985 Arrival Date: 10/29/2023 Time: 11:13 Bed DX4 Private MD: YANN Physician Binh Landry HPI: 10/29 11:34 This 37 yrs old Black Male presents to ER via Unassigned with complaints of yudelka Vomiting/Diarrhea, Weakness. 11:34 The patient presents to the emergency department with nausea, vomiting, diarrhea, yudelka abdominal pain, of the right upper quadrant, left upper quadrant, right lower quadrant and left lower quadrant. Onset: The symptoms/episode began/occurred 2 day(s) ago. Possible causes: unknown. The symptoms are aggravated by nothing. The symptoms are alleviated by nothing. Associated signs and symptoms: Pertinent positives: abdominal pain, diarrhea, nausea, vomiting. Severity of symptoms: At their worst the symptoms were mild moderate in the emergency department the symptoms are unchanged. The patient has experienced similar episodes in the past, multiple times. Historical: - Allergies: 11:49 No Known Allergies; ko1 - PMHx: 11:49 Hypertensive disorder; ko1 - Immunization history:: Adult Immunizations up to date. - Social history:: Smoking status: Patient uses street drugs, marijuana. - Family history:: not pertinent. ROS: 11:34 Constitutional: Negative for fever, chills, and weight loss, Eyes: Negative for injury, yudelka pain, redness, and discharge, ENT: Negative for injury, pain, and discharge, Neck: Negative for injury, pain, and swelling, Cardiovascular: Negative for chest pain, palpitations, and edema, Respiratory: Negative for shortness of breath, cough, wheezing, and pleuritic chest pain, Back: Negative for injury and pain, : Negative for injury, bleeding, discharge, and swelling, MS/Extremity: Negative for injury and deformity, Skin: Negative for injury, rash, and discoloration, Neuro: Negative for headache, weakness, numbness, tingling, and seizure, Psych: Negative for depression, anxiety, suicide ideation, homicidal ideation, and hallucinations, Allergy/Immunology: Negative for hives, rash, and allergies, Endocrine: Negative for neck swelling, polydipsia, polyuria, polyphagia, and marked weight changes, Hematologic/Lymphatic: Negative for swollen nodes, abnormal bleeding, and unusual bruising, 11:34 Abdomen/GI: Positive for abdominal pain, nausea and vomiting, diarrhea, abdominal cramps, Exam: 11:34 Constitutional: This is a well developed, well nourished patient who is awake, alert, yudelka and in no acute distress. Head/Face: Normocephalic, atraumatic. Eyes: Pupils equal round and reactive to light, extra-ocular motions intact. Lids and lashes normal. Conjunctiva and sclera are non-icteric and not injected. Cornea within normal limits. Periorbital areas with no swelling, redness, or edema. ENT: Nares patent. No nasal discharge, no septal abnormalities noted. Tympanic membranes are normal and external auditory canals are clear. Oropharynx with no redness, swelling, or masses, exudates, or evidence of obstruction, uvula midline. Mucous membranes moist. Neck: Trachea midline, no thyromegaly or masses palpated, and no cervical lymphadenopathy. Supple, full range of motion without nuchal rigidity, or vertebral point tenderness. No Meningismus. Chest/axilla: Normal chest wall appearance and motion. Nontender with no deformity. No lesions are appreciated. Cardiovascular: Regular rate and rhythm with a normal S1 and S2. No gallops, murmurs, or rubs. Normal PMI, no JVD. No pulse deficits. Respiratory: Lungs have equal breath sounds bilaterally, clear to auscultation and percussion. No rales, rhonchi or wheezes noted. No increased work of breathing, no retractions or nasal flaring. Back: No spinal tenderness. No costovertebral tenderness. Full range of motion. Male : Normal genitalia with no discharge or lesions. Skin: Warm, dry with normal turgor. Normal color with no rashes, no lesions, and no evidence of cellulitis. MS/ Extremity: Pulses equal, no cyanosis. Neurovascular intact. Full, normal range of motion. Neuro: Awake and alert, GCS 15, oriented to person, place, time, and situation. Cranial nerves II-XII grossly intact. Motor strength 5/5 in all extremities. Sensory grossly intact. Cerebellar exam normal. Normal gait. Psych: Awake, alert, with orientation to person, place and time. Behavior, mood, and affect are within normal limits. 11:34 Abdomen/GI: Inspection: abdomen appears normal, Bowel sounds: normal, Palpation: mild abdominal tenderness, in the right upper quadrant, left upper quadrant, right lower quadrant and left lower quadrant, Liver: no appreciated palpable abnormalities, Hernia: not appreciated, Vital Signs: 11:46 BP 148 / 91; Pulse 59; Resp 14; Temp 97.3; Pulse Ox 99% ; ko1 15:05 BP 139 / 71; Pulse 55; Resp 16; Pulse Ox 99% ; ll1 MDM: 11:22 Patient medically screened. [facility] 11:39 Differential diagnosis: Nonspecific abd pain, gastritis, cholecystitis, pancreatitis, yudelka diverticulitis, viral gastroenteritis, gastroenteritis. Data reviewed: vital signs, nurses notes, lab test result(s), radiologic studies, CT scan. Consideration of Admission/Observation Escalation of care including admission/observation considered. I considered the following discharge prescriptions or medication management in the emergency department Medications were administered in the Emergency Department. See MAR. Independent interpretation of the following test(s) in the Emergency Department CT Scan: My interpretation is ct abd / pelvis. Test considered but Not performed: EKG: no ekg. Historians other than the Patient: Spouse/Significant Other: well informed. Care significantly affected by the following chronic conditions: abd issues. Counseling: I had a detailed discussion with the patient and/or guardian regarding the historical points, exam findings, and any diagnostic results supporting the discharge/admit diagnosis, lab results, radiology results, the need for outpatient follow up, for definitive care, a family practitioner, a bilingual sales assistant. 10/29 11:23 Order name: CBC with Diff; Complete Time: 13:40 [facility] 10/29 11:23 Order name: CMP; Complete Time: 13:40 [facility] 10/29 11:23 Order name: Lipase; Complete Time: 13:40 [facility] 10/29 11:34 Order name: Flu; Complete Time: 13:40 [facility] 10/29 11:34 Order name: SARS RAPID; Complete Time: 13:40 [facility] 10/29 11:34 Order name: CT Abd/Pelvis - IV Contrast Only; Complete Time: 13:40 [facility] 10/29 11:23 Order name: IV Saline Lock; Complete Time: 13:32 [facility] 10/29 11:23 Order name: Labs collected and sent; Complete Time: 12:28 [facility] 10/29 13:42 Order name: PO challenge: juice; Complete Time: 14:05 yudelka Administered Medications: 14:05 Drug: Famotidine IVP 20 mg IVP once; dilute with 10 mL 0.9% NaCl; give over 2 minutes jl7 Route: IVP; Site: right antecubital; 14:54 Follow up: Response: No adverse reaction ll1 14:05 Drug: Potassium PO Effervescent Tablet 50 mEq PO once; dissolve in 4 ounces of water or jl7 juice Route: PO; 14:54 Follow up: Response: No adverse reaction ll1 14:06 Drug: NS 0.9% IV 1000 ml IV at 1 bolus Per protocol; 1000 mL bolus Route: IV; Rate: 1 jl7 bolus; Site: right antecubital; 14:55 Follow up: Response: No adverse reaction; IV Status: Completed infusion; IV Intake: ll1 1000ml 14:06 Drug: Ondansetron IVP 4 mg IVP once; over 2 minutes Route: IVP; Site: right antecubital;jl7 14:55 Follow up: Response: No adverse reaction ll1 Disposition Summary: 10/29/23 13:42 Discharge Ordered Notes: Location: Home yudelka Problem: new yudelka Symptoms: have improved yudelka Condition: Stable yudelka Diagnosis - Vomiting yudelka - Diarrhea, unspecified yudelka - Abdominal pain, Generalized yudelka - Hypokalemia yudelka - Other viral enteritis yudelka Followup: yudelka - With: Private Physician - When: 2 - 3 days - Reason: Recheck today's complaints, Continuance of care, Re-evaluation by your physician Followup: yudelka - With: Kamini Bradford MD - When: 2 - 3 days - Reason: Recheck today's complaints, Re-evaluation by your physician Discharge Instructions: - Discharge Summary Sheet yudelka - Abdominal Pain, Adult yudelka - Diarrhea, Adult yudelka - Potassium Content of Foods yudelka - Viral Gastroenteritis, Adult yudelka - Viral Gastroenteritis, Adult, [id number] yudelka - Abdominal Pain, Adult, Mvsg-ta-Sgch yudelka - Diarrhea, Adult, Tjzg-[id number]-Cevt yudelka - Hypokalemia yudelka - Vomiting, Adult yudelka Forms: - Medication Reconciliation Form [facility] - Thank You Letter [facility] - Antibiotic Education yudelka - Prescription Opioid Use yudelka - Patient Portal Instructions yudelka - Leadership Thank You Letter [facility] Prescriptions: - ondansetron 4 mg Oral Tablet,disintegrating - take 1 tablet ORAL route every 6-8 hours for 5 days; 20 tablet; Refills: 0, yudelka Product Selection Permitted - Pepcid 20 mg Oral tablet - take 1 tablet ORAL route every 12 hours for 21 days; 42 tablet; Refills: 0, yudelka Product Selection Permitted - Potassium Chloride 20 meq Oral Packet - take 1 packet ORAL route once daily 1 packet in 6 (six) ounces of water or yudelka juice; Take after meal; 14 packet; Refills: 0, Product Selection Permitted - dicyclomine 20 mg Oral tablet - take 1 tablet ORAL route 4 times per day; 28 tablet; Refills: 0, Product yudelka Selection Permitted Signatures: Dispatcher [employer] EDBinh Mandel MD MD cha Leal, Jahala RN RN jl7 Shelby Perdomo RN RN ko1 Rosi Camarena RN ll1 Corrections: (The following items were deleted from the chart) 11:50 11:49 PSHx: Appendectomy; ko1 ko1
[2023-10-29] MEDS ORDERED: ONDANSETRON 4 MG/2 ML VIAL ONE (13:49)
[2023-10-29] MEDS ORDERED: FAMOTIDINE 20 MG/2 ML VIAL IV ONE (13:50)
[2023-10-29] MEDS ORDERED: NA CHLORIDE 0.9% 1,000 ML ONE (13:50)
[2023-10-29] MEDS ORDERED: POTASSIUM 25 MEQ EFFERV TAB ONE (14:08)
[2023-10-29 15:42] VITALS: TEMP 97.3; O2SAT 99
[2023-10-29 15:43] VITALS: BP 139/71
== END 2023-10-29 15:06 | disposition home or self-care (01) ==
LOC: ER 11:13
DX: A08.39 Other viral enteritis (principal); E87.6 Hypokalemia; R10.84 Generalized abdominal pain
CPT/HCPCS: 36415; 74177; 80053; 83690; 85025; 87804; 87811; 96361; 96374; 96375; 99284; J2405; J7030; Q9967

== ENCOUNTER → 2023-11-29 | Emergency (ER) | payer SELFPAY ==
[~2023-11-29] MED LIST: NA CHLORIDE 0.9% 1,000 ML ONE
[2023-11-29 11:07] LABS: Absolute Lymphocytes (CBC) 1.6 K/uL (0.7-4.9); Hematocrit 39.8 % (39.6-49.0); Lymphocytes % 21.6 % (15.3-44.8); MCV 86.5 fL (80-100); MPV 8.2 fL (7.6-11.3); Platelets 199 thou/uL (152-406)
[2023-11-29 11:15] LABS: Protime INR 1.23
[2023-11-29 11:26] LABS: ALT/SGPT 14 U/L (16-61); AST/SGOT 20 U/L (15-37); Albumin 3.8 g/dL (3.4-5.0); Alkaline Phosphatase 49 U/L (45-117); BUN Blood Urea Nitrogen 10 mg/dL (7-18); Bicarbonate 29 mEq/L (21-32); Bilirubin Direct 0.2 mg/dL (0-0.2); Bilirubin Indirect, Calculated 0.2 mg/dL (0.2-0.8); Bilirubin Total 0.4 mg/dL (0.2-1.0); Creatine Phosphokinase 646 U/L (39-308); Glomerular Filtration Rate 89 ml/min (=/>90); Glucose Level 124 mg/dL (74-106); Potassium 3.8 mEq/L (3.5-5.1); Protein, Total 7.2 g/dL (6.4-8.2); Sodium Level 140 mEq/L (136-145)
--- NOTE | 2023-11-29 13:28 | ER ---
Nurse's Notes [facility] Name: Meño Quiroga Age: 37 yrs Sex: Male : 1985 Arrival Date: 11/29/2023 Time: 10:07 Bed 16 Private MD: Diagnosis: Dehydration;Other psychoactive substance abuse Presentation: 11/29 11:14 Chief complaint: Patient states: reports dark urine and recent stress. Patient states cp4 he smoked weed prior to arrival. Coronavirus screen: Vaccine status: Patient reports being unvaccinated. Client denies travel out of the [place] in the last 14 days. At this time, the client does not indicate any symptoms associated with coronavirus-19. Ebola Screen: Patient negative for fever greater than or equal to 101.5 degrees Fahrenheit, and additional compatible Ebola Virus Disease symptoms Patient denies exposure to infectious person. Patient denies travel to an Ebola-affected area in the 21 days before illness onset. No symptoms or risks identified at this time. Initial Sepsis Screen: Does the patient meet any 2 criteria? No. Patient's initial sepsis screen is negative. Does the patient have a suspected source of infection? No. Patient's initial sepsis screen is negative. Risk Assessment: Do you want to hurt yourself or someone else? Patient reports no desire to harm self or others. Onset of symptoms was October 2023. 11:14 Method Of Arrival: Ambulatory cp4 11:14 Acuity: ASHLEE 3 cp4 Triage Assessment: 11:16 General: Appears in no apparent distress. Behavior is calm, cooperative, appropriate cp4 for age. Pain: Denies pain. Historical: - Allergies: 11:16 No Known Allergies; cp4 - PMHx: 11:16 Hypertensive disorder; cp4 - Immunization history:: Adult Immunizations up to date. - Social history:: Smoking status: Patient denies any tobacco usage or history of. Patient uses marijuama.. Screenin:18 [facility] ED Fall Risk Assessment (Adult) History of falling in the last 3 months, cp4 including since admission No falls in past 3 months (0 pts) Confusion or Disorientation No (0 pts) Intoxicated or Sedated No (0 pts) Impaired Gait No (0 pts) Mobility Assist Device Used No (0 pt) Altered Elimination No (0 pt) Score/Fall Risk Level 0 - 2 = Low Risk Oriented to surroundings, Maintained a safe environment, Educated pt \T\ family on fall prevention, incl call for assistance when getting out of bed, Assessed \T\ reinforced patient's understanding of fall precautions, Hourly rounding (assess needs \T\ fall precautionary measures) done. Abuse screen: Denies threats or abuse. Nutritional screening: No deficits noted. Tuberculosis screening: No symptoms or risk factors identified. Assessment: 11:18 Reassessment: No changes from previously documented assessment. cp4 Vital Signs: 11:14 BP 133 / 100; Pulse 45; Resp 16; Temp 98.4; Pulse Ox 100% ; Weight 90.26 kg; Height 5 cp4 ft. 8 in. ; 12:29 BP 125 / 84; Pulse 48; Resp 16; Pulse Ox 100% ; cp4 13:03 BP 125 / 84; Pulse 60; Resp 16; Pulse Ox 100% ; cp4 11:14 Body Mass Index 30.26 (90.26 kg, 172.72 cm) cp4 ED Course: 10:11 Patient arrived in ED. ae5 10:15 Yue Archer FNP is PHCP. jh7 10:15 Daniel Montgomery MD is Attending Physician. jh7 10:33 Yvonne Clarke is Primary Nurse. cp4 11:16 Triage completed. cp4 11:16 Arm band placed on right wrist. Patient placed in the treatment room, on a stretcher. cp4 13:44 Bed in low position. Call light in reach. Side rails up X 1. Provided Education on: cp4 dehydration and substance abuse. . 13:44 No provider procedures requiring assistance completed. intact, bleeding controlled, No cp4 redness/swelling at site. Pressure dressing applied. Administered Medications: 10:48 Drug: NS 0.9% IV 1000 ml IV at 1 bolus Per protocol; 1000 mL bolus Route: IV; Rate: 1 cp4 bolus; Site: left antecubital; 13:43 Follow up: Response: No adverse reaction; IV Status: Completed infusion cp4 Medication: 11:18 VIS not applicable for this client. cp4 Outcome: 13:27 Discharge ordered by . jh7 13:44 Discharged to home ambulatory, cp4 13:44 Condition: stable 13:44 Discharge instructions given to patient, Instructed on discharge instructions, follow up and referral plans. Demonstrated understanding of instructions, follow-up care, 13:48 Patient left the ED. cp4 Signatures: Yue Archer, GIN [place] jh7 Yvonne Clarke cp4 Meredith Neri ae5
--- NOTE | 2023-11-29 13:28 | EDPHYS ---
Physician Documentation [facility] Name: Meño Quiroga Age: 37 yrs Sex: Male : 1985 Arrival Date: 11/29/2023 Time: 10:07 Bed 16 Private MD: ED Physician Daniel Montgomery HPI: 11/29 11:14 This 37 yrs old Black Male presents to ER via Ambulatory with complaints of Urinary jh7 Problem, MEDICATION ISSUE. 11:14 Onset: The symptoms/episode began/occurred 3 day(s) ago. Associated signs and symptoms: jh7 Pertinent positives: lethargy, Pertinent negatives: abdominal pain, chest pain, shortness of breath, vomiting. 37-year-old male presents to the ER for dark urine for the past 3 days. Patient's reports that he has been combining lithium, BuSpar, Xanax, and weed for the past 3 days. She reports that the Xanax is not prescribed and that he gets it off the street. The patient denies any SI/HI, but states he has been under increased stress lately. Denies any other urinary symptoms.. Historical: - Allergies: 11:16 No Known Allergies; cp4 - PMHx: 11:16 Hypertensive disorder; cp4 - Immunization history:: Adult Immunizations up to date. - Social history:: Smoking status: Patient denies any tobacco usage or history of. Patient uses marijuama.. ROS: 11:14 Constitutional: Negative for fever, chills, and weight loss, Eyes: Negative for injury, jh7 pain, redness, and discharge, Neck: Negative for injury, pain, and swelling, Cardiovascular: Negative for chest pain, palpitations, and edema, Respiratory: Negative for shortness of breath, cough, wheezing, and pleuritic chest pain, Abdomen/GI: Negative for abdominal pain, nausea, vomiting, diarrhea, and constipation, Back: Negative for injury and pain, MS/Extremity: Negative for injury and deformity, Skin: Negative for injury, rash, and discoloration, Neuro: Negative for headache, weakness, numbness, tingling, and seizure, 11:14 : Positive for dark urine, 11:14 All other systems are negative, Exam: 11:14 Head/Face: Normocephalic, atraumatic. Neck: Trachea midline, no thyromegaly or masses jh7 palpated, and no cervical lymphadenopathy. Supple, full range of motion without nuchal rigidity, or vertebral point tenderness. No Meningismus. Cardiovascular: Regular rate and rhythm with a normal S1 and S2. No gallops, murmurs, or rubs. Normal PMI, no JVD. No pulse deficits. Respiratory: Lungs have equal breath sounds bilaterally, clear to auscultation and percussion. No rales, rhonchi or wheezes noted. No increased work of breathing, no retractions or nasal flaring. Abdomen/GI: Soft, non-tender, with normal bowel sounds. No distension or tympany. No guarding or rebound. No evidence of tenderness throughout. Back: No spinal tenderness. No costovertebral tenderness. Full range of motion. Skin: Warm, dry with normal turgor. Normal color with no rashes, no lesions, and no evidence of cellulitis. MS/ Extremity: Pulses equal, no cyanosis. Neurovascular intact. Full, normal range of motion. Neuro: Awake and alert, GCS 15, oriented to person, place, time, and situation. Motor strength 5/5 in all extremities. Sensory grossly intact. 11:14 Constitutional: The patient appears awake, lethargic, 11:14 Neuro: Orientation: to person, place, time \T\ situation. Mentation: is normal, Memory: is normal, Cranial nerves: grossly normal, Cerebellar function: is grossly normal, Motor: is normal, Sensation: is normal, slurred speech, Vital Signs: 11:14 BP 133 / 100; Pulse 45; Resp 16; Temp 98.4; Pulse Ox 100% ; Weight 90.26 kg; Height 5 cp4 ft. 8 in. ; 12:29 BP 125 / 84; Pulse 48; Resp 16; Pulse Ox 100% ; cp4 13:03 BP 125 / 84; Pulse 60; Resp 16; Pulse Ox 100% ; cp4 11:14 Body Mass Index 30.26 (90.26 kg, 172.72 cm) cp4 MDM: 10:15 Patient medically screened. 7 13:25 Differential diagnosis: UTI, Rhabdomyolysis, dehydration, JACKIE, substance abuse, jh7 overdose. Data reviewed: vital signs, nurses notes, lab test result(s), EKG. I considered the following discharge prescriptions or medication management in the emergency department Medications were administered in the Emergency Department. See MAR. Independent interpretation of the following test(s) in the Emergency Department EKG: See my EKG interpretation above. Historians other than the Patient: Spouse/Significant Other: . Care significantly affected by the following chronic conditions: Hypertension, Bipolar, Anxiety. Care significantly affected by the following Social Determinants of Health: Misuse of alcohol and/or drugs. Counseling: I had a detailed discussion with the patient and/or guardian regarding the historical points, exam findings, and any diagnostic results supporting the discharge/admit diagnosis, to return to the emergency department if symptoms worsen or persist or if there are any questions or concerns that arise at home. Response to treatment: the patient's symptoms have markedly improved after treatment. ED course: The patient's urine he provided was yellow and did not appear [place]. He stated he felt much better after the fluids. Strongly advised him to increase p.o. fluid intake and monitor urine output. If symptoms return, return to the ER for further eval. Also discussed not combining medications and avoiding overuse of Xanax.. 11/29 10:24 Order name: Acetaminophen; Complete Time: 12:44 [facility] 11/29 10:24 Order name: Basic Metabolic Panel; Complete Time: 12:44 [facility] 11/29 10:24 Order name: CBC with Diff; Complete Time: 12:44 [facility] 11/29 10:24 Order name: ETOH Level; Complete Time: 12:44 [facility] 11/29 10:24 Order name: Hepatic Function; Complete Time: 12:44 [facility] 11/29 10:24 Order name: PT-INR; Complete Time: 12:44 [facility] 11/29 10:24 Order name: Ptt, Activated; Complete Time: 12:44 [facility] 11/29 10:24 Order name: Salicylate; Complete Time: 12:44 [facility] 11/29 10:24 Order name: Urinalysis w/ reflexes [facility] 11/29 10:24 Order name: Urine Drug Screen [facility] 11/29 10:24 Order name: CK; Complete Time: 12:44 [facility] 11/29 10:24 Order name: EKG; Complete Time: 10:25 [facility] 11/29 10:24 Order name: EKG - Nurse/Tech; Complete Time: 11:04 [facility] 11/29 10:24 Order name: IV Saline Lock; Complete Time: 10:49 [facility] 11/29 10:24 Order name: Labs collected and sent; Complete Time: 10:49 7 EC:11 Rate is 44 beats/min. Rhythm is regular. QRS [place] is Normal. LA interval is normal at [facility] 178 msec. QRS interval is normal at 110 msec. QT interval is prolonged at 450 msec. No Q waves. 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 Administered Medications: 10:48 Drug: NS 0.9% IV 1000 ml IV at 1 bolus Per protocol; 1000 mL bolus Route: IV; Rate: 1 cp4 bolus; Site: left antecubital; 13:43 Follow up: Response: No adverse reaction; IV Status: Completed infusion cp4 Disposition: 11/30 08:53 Co-signature as Attending Physician, Daniel Montgomery MD I reviewed the patient's care rn provided by the Advanced Practice Provider and agree with the diagnosis and treatment plan. Disposition Summary: 11/29/23 13:27 Discharge Ordered Notes: Location: Home [facility] Problem: an ongoing problem [facility] Symptoms: have improved [facility] Condition: Stable [facility] Diagnosis - Dehydration [facility] - Other psychoactive substance abuse [facility] Followup: [facility] - With: Private Physician - When: 2 - 3 days - Reason: Recheck today's complaints Discharge Instructions: - Discharge Summary Sheet [facility] - Dehydration, Adult [facility] - Substance Use Disorder [facility] - Substance Use Disorder and Mental Illness [facility] Forms: - Medication Reconciliation Form [facility] - Thank You Letter [facility] - Patient Portal Instructions [facility] - Leadership Thank You Letter [facility] Signatures: Dispatcher [employer] EDDaniel Padgett MD MD rn Yue Archer FNP ADMINISTRATIVE TECH [facility] Yvonne Clarke 4 Corrections: (The following items were deleted from the chart) 11/29 10:34 10:24 Suicide Screening ([place]) ordered. [place] [id number]
[2023-11-29 13:57] VITALS: BP 125/84; TEMP 98.4; O2SAT 100
== END ==
LOC: ER 10:07
DX: E86.0 Dehydration (principal); F19.10 Other psychoactive substance abuse, uncomplicated
CPT/HCPCS: 36415; 80048; 80076; 80143; 80179; 82077; 82550; 85025; 85610; 85730; 93005; 96360; 96361; 99284; J7030

== ENCOUNTER 2025-01-10 23:06 | Emergency (ER) | payer OTHER ==
[2025-01-11] MEDS ORDERED: ACETAMINOPHEN 500 MG TAB ONE (00:09)
--- NOTE | 2025-01-11 00:12 | ER ---
Nurse's Notes [facility] Name: Meño Quiroga Age: 39 yrs Sex: Male : 1985 Arrival Date: 01/10/2025 Time: 23:06 Bed 7 Private MD: Diagnosis: Pain in left leg Presentation: 01/10 23:17 Chief complaint: Patient states: states he had an injury to his anterior lower leg 3-4 me1 months ago and there was a knot there until a few weeks ago. When the knot went down he started to experience numbness and throbbing to that area of his leg. Coronavirus screen: Vaccine status: Patient reports being unvaccinated. Ebola Screen: No symptoms or risks identified at this time. Initial Sepsis Screen: Does the patient meet any 2 criteria? No. Patient's initial sepsis screen is negative. Does the patient have a suspected source of infection? No. Patient's initial sepsis screen is negative. Risk Assessment: Do you want to hurt yourself or someone else? Patient reports no desire to harm self or others. Onset of symptoms is unknown. 23:17 Method Of Arrival: [place] [facility] [place] 23:17 Acuity: ASHLEE 4 me1 Triage Assessment: 01/11 00:23 Pain:. br2 Historical: - Allergies: 01/10 23:19 No Known Allergies; me1 - PMHx: 23:18 Hypertensive disorder; me1 - PSHx: 23:18 Appendectomy; me1 - Immunization history:: Adult Immunizations. - Infectious Disease History:: Denies. - Social history:: Smoking status: Reported history of juuling and/or vaping. Screenin:17 [facility] ED Fall Risk Assessment (Adult) History of falling in the last 3 months, br2 including since admission No falls in past 3 months (0 pts) Confusion or Disorientation No (0 pts) Intoxicated or Sedated No (0 pts) Impaired Gait No (0 pts) Mobility Assist Device Used No (0 pt) Altered Elimination No (0 pt) Score/Fall Risk Level 0 - 2 = Low Risk Oriented to surroundings. Abuse screen: Denies threats or abuse. Denies injuries from another. Nutritional screening: No deficits noted. Tuberculosis screening: No symptoms or risk factors identified. Assessment: 23:17 Reassessment: Patient and/or family updated on plan of care and expected duration. Pain br2 level reassessed. Patient is alert, oriented x 3, equal unlabored respirations, skin warm/dry/pink. General: Appears in no apparent distress. comfortable, Behavior is calm, cooperative. Pain: Denies pain. Neuro: Reports numbness in medial aspect of left thigh, medial aspect of left knee, medial aspect of left calf, left medial ankle and medial aspect of left foot. Vital Signs: 23:17 BP 169 / 101; Pulse 64; Resp 17; Temp 98.4; Pulse Ox 100% ; Weight 94.35 kg; Height 5 me1 ft. 6 in. ; Pain 4/10; 23:59 BP 152 / 91; Pulse 66; Resp 18 S; Pulse Ox 99% on R/A; br2 23:17 Body Mass Index 33.57 (94.35 kg, 167.64 cm) me1 23:17 Pain Scale: Adult nm1 ED Course: 23:08 Patient arrived in ED. im 23:12 Elina Ford FNP-C is [facility]. kb 23:12 Shawn Simeon MD is Attending Physician. kb 23:17 Patient has correct armband on for positive identification. Bed in low position. Call br2 light in reach. Side rails up X 1. Provided Education on: PLAN OF CARE. 23:18 Triage completed. me1 23:19 Arm band placed on Patient placed in an exam room. me1 23:37 Thu Larose, RN is Primary Nurse. br2 23:48 US Extremity Venous Unilateral Ltd In Process Unspecified. EDMS 01/11 00:22 No provider procedures requiring assistance completed. Patient did not have IV access br2 during this emergency room visit. Administered Medications: 00:17 Drug: Acetaminophen PO 1000 mg PO once Route: PO; vc1 00:24 Follow up: Response: Medication administered at discharge. br2 Medication: 00:28 VIS not applicable for this client. vc1 Outcome: 00:11 Discharge ordered by . kb 00:22 Discharged to home br2 00:22 Condition: good 00:22 Discharge instructions given to patient, Instructed on discharge instructions, follow up and referral plans. Demonstrated understanding of instructions, follow-up care, medications, Prescriptions given X 1, 00:28 Patient left the ED. vc1 Signatures: Dispatcher [employer] EDGA Elina Ford FNP-C FNP-Casa Keren Galvan, RN RN vc1 Ryanne Mark Michelle, RN RN me1 Thu Larose, RN RN br2
--- NOTE | 2025-01-11 00:12 | EDPHYS ---
Physician Documentation [facility] Name: Meño Quiroga Age: 39 yrs Sex: Male : 1985 Arrival Date: 01/10/2025 Time: 23:06 Bed 7 Private MD: ED Physician Shawn Simeon HPI: 01/10 23:17 This 39 yrs old Black Male presents to ER via Unassigned with complaints of Headache, kb Leg Pain, Numbness - legs. 23:17 Pt is a 39 year old male who presents for intermittent numbness and pain to left penny kb that started 3-4 months ago. States he injured his leg then and it healed, but pt he has a large knot to the area for a while afterwards. States the knot went away, but he has still had the intermittent pain and numbness. Decided to come get it checked out tonight.. Historical: - Allergies: 23:19 No Known Allergies; me1 - PMHx: 23:18 Hypertensive disorder; me1 - PSHx: 23:18 Appendectomy; me1 - Immunization history:: Adult Immunizations. - Infectious Disease History:: Denies. - Social history:: Smoking status: Reported history of juuling and/or vaping. ROS: 23:17 Constitutional: As per HPI kb Exam: 23:17 Constitutional: This is a well developed, well nourished patient who is awake, alert, kb and in no acute distress. Head/Face: Normocephalic, atraumatic. ENT: Moist Mucous membranes Cardiovascular: Regular rate Respiratory: Respirations even and unlabored. No increased work of breathing. Talking in full sentences Skin: Warm, dry with normal turgor. Normal color. MS/ Extremity: Pulses equal, no cyanosis. Neurovascular intact. Full, normal range of motion. Neuro: Awake and alert, GCS 15, oriented to person, place, time, and situation. Vital Signs: 23:17 BP 169 / 101; Pulse 64; Resp 17; Temp 98.4; Pulse Ox 100% ; Weight 94.35 kg; Height 5 me1 ft. 6 in. ; Pain 4/10; 23:59 BP 152 / 91; Pulse 66; Resp 18 S; Pulse Ox 99% on R/A; br2 23:17 Body Mass Index 33.57 (94.35 kg, 167.64 cm) me1 23:17 Pain Scale: Adult me1 MDM: 23:12 Medical Screening Exam initiated kb 23:17 Differential diagnosis: contusion, tendonitis, dvt. Data reviewed: vital signs, nurses kb notes. 01/11 00:11 Counseling: I had a detailed discussion with the patient and/or guardian regarding the kb historical points, exam findings, and any diagnostic results supporting the discharge/admit diagnosis, radiology results, the need for outpatient follow up, a family practitioner, to return to the emergency department if symptoms worsen or persist or if there are any questions or concerns that arise at home. 01/10 23:16 Order name: US Extremity Venous Unilateral Ltd kb Administered Medications: 00:17 Drug: Acetaminophen PO 1000 mg PO once Route: PO; vc1 00:24 Follow up: Response: Medication administered at discharge. br2 Disposition Summary: 01/11/25 00:11 Discharge Ordered Notes: Location: Home kb Condition: Stable kb Diagnosis - Pain in left leg kb Followup: kb - With: Emergency Department - When: As needed - Reason: Worsening of condition Followup: kb - With: Private Physician - When: 2 - 3 days - Reason: Recheck today's complaints, Continuance of care, Re-evaluation by your physician Discharge Instructions: - Discharge Summary Sheet kb - Musculoskeletal Pain kb Forms: - Medication Reconciliation Form kb - Antibiotic Education kb - Prescription Opioid Use kb - Patient Portal Instructions kb - Leadership Thank You Letter kb Prescriptions: - Diclofenac Sodium 75 mg Oral tablet, delayed release (enteric coated) - take 1 tablet ORAL route 2 times per day As needed; 30 tablet; Refills: 0, kb Product Selection Permitted Addendum: 01/12/2025 09:33 I was immediately available for consultation during this patient's visit. I did not e c2 personally see the patient or discuss the patient with the GLORIA. . Signatures: Dispatcher [employer] Elina Rey FNP-C FNP-Keren Haskins RN RN vc1 Kadi Thompson RN RN me1 Shawn Simeon MD MD ec2 Thu Larose RN br2
--- NOTE | 2025-01-11 01:29 | RAD REPORT ---
EXAM DESCRIPTION: Extremity Venous Uni Ltd CLINICAL HISTORY: Pain;Numbness/tingling COMPARISON: None. TECHNIQUE: Grayscale, color Doppler, and spectral Doppler imaging of the left lower extremity venous system. FINDINGS: Normal compressibility and flow identified in the left common femoral, superficial femoral, popliteal, and visualized calf veins. No echogenic thrombus identified. No soft tissue abnormalities. Respiratory phasicity in the common femoral veins. IMPRESSION: No evidence of left lower extremity DVT. Electronically signed by: Lacho Barreto DO 01/11/2025 01:25 AM [facility] [id number] Due to temporary technical issues with the PACS/[facility] scribe reporting system, reports are being signed by the in-house radiologist without review as a courtesy to ensure prompt reporting the interpreting radiologist is fully responsible for the content of the report. Transcribed Date/Time: 01/11/2025 1:29 AM
[2025-01-11 10:33] VITALS: TEMP 98.4
[2025-01-11 10:34] VITALS: BP 152/91; O2SAT 99
== END 2025-01-11 00:28 | disposition home or self-care (01) ==
LOC: ER 23:06
DX: M79.605 Pain in left leg (principal); R51.9 Headache, unspecified
CPT/HCPCS: 93971; 99283

== ENCOUNTER 2025-07-17 09:51 | Emergency (ER) | payer OTHER ==
--- NOTE | 2025-07-17 10:44 | RAD REPORT ---
EXAM: Knee Left 3 View INDICATION: Swelling;Pain COMPARISON: None FINDINGS: No acute fracture. No significant knee effusion. Mild medial and lateral compartment spurring which is age advanced Mild patellofemoral compartment sp urring. Patellar enthesophytes. Other: N/A IMPRESSION: No acute osseous abnormality involving the imaged knee. Mild tricompartmental degenerativ e changes.
--- NOTE | 2025-07-17 10:58 | EDPHYS ---
Physician Documentation [facility] Name: Meño Quiroga Age: 39 yrs Sex: Male : 1985 Arrival Date: 07/17/2025 Time: 09:51 Bed 14 Private MD: ED Physician Magdy Jc HPI: 07/17 10:19 This 39 yrs old Black Male presents to ER via Ambulatory with complaints of left Knee dr5 Pain. 10:19 Onset: The symptoms/episode began/occurred 2 day(s) ago. Patient is a 39-year-old male dr5 with history of hypertension coming in with left knee pain without trauma for the past 2 days. Patient reports that he noticed the pain is worsening. Patient reports pain is to the general left knee as well as back of left knee. Patient denies hearing a pop. Patient reports he is able to ambulate and bear weight on left knee.. Historical: - Allergies: 10:00 No Known Allergies; iw - PMHx: 10:00 Hypertensive disorder; iw - PSHx: 10:00 Appendectomy; iw - Immunization history:: Adult Immunizations. - Infectious Disease History:: Denies. - Social history:: Smoking status: Reported history of juuling and/or vaping. ROS: 10:19 Constitutional: as per hpi dr5 Exam: 10:19 Constitutional: This is a well developed, well nourished patient who is awake, alert, dr5 and in no acute distress. Head/Face: Normocephalic, atraumatic. Eyes: Pupils equal round and reactive to light, extra-ocular motions intact. Lids and lashes normal. Conjunctiva and sclera are non-icteric and not injected. Cornea within normal limits. Periorbital areas with no swelling, redness, or edema. Neck: Trachea midline, no thyromegaly or masses palpated, and no cervical lymphadenopathy. Supple, full range of motion without nuchal rigidity, or vertebral point tenderness. No Meningismus. Chest/axilla: Normal chest wall appearance and motion. Nontender with no deformity. No lesions are appreciated. Cardiovascular: Regular rate and rhythm with a normal S1 and S2. Normal PMI, no JVD. No pulse deficits. Respiratory: Lungs have equal breath sounds bilaterally, clear to auscultation. No rales, rhonchi or wheezes noted. No increased work of breathing, no retractions or nasal flaring. Back: No spinal tenderness. No costovertebral tenderness. Full range of motion. Skin: Warm, dry with normal turgor. Normal color with no rashes, no lesions, and no evidence of cellulitis. MS/ Extremity: Pulses equal, no cyanosis. Neurovascular intact. Full, normal range of motion. Negative anterior and posterior drawer test. Patient is ambulatory with steady gait. No swelling or tenderness noted to left knee Neuro: Awake and alert, GCS 15, oriented to person, place, time, and situation. Cranial nerves II-XII grossly intact. Motor strength 5/5 in all extremities. Sensory grossly intact. Cerebellar exam normal. Normal gait. Vital Signs: 09:59 BP 154 / 110; Pulse 54; Resp 16; Temp 98.3; Pulse Ox 100% ; Weight 110.22 kg; Height 5 iw ft. 7 in. ; 10:11 BP 157 / 90; aa5 09:59 Body Mass Index 38.06 (110.22 kg, 170.18 cm) iw Procedures: 10:58 Splinting: Splint applied to left leg using lawrence wrap, applied by nurse. Examined by me, dr5 post splint application: neurovascular intact, 2+ distal pulses palpable, brisk capillary refill noted, Patient tolerated well. MDM: 09:54 Medical Screening Exam initiated dr5 10:21 ED course: Will get x-ray of left knee to rule out abnormality. Blood pressure elevated dr5 as patient has not taken blood pressure medication this morning. 10:58 Differential diagnosis: abrasion, contusion, fracture, sprain, strain, Briscoe's Cyst. dr5 Data reviewed: vital signs, nurses notes, radiologic studies, plain films. Consideration of Admission/Observation Escalation of care including admission/observation considered. Admission consented patient found to have open fracture. I considered the following discharge prescriptions or medication management in the emergency department I discussed and recommended Over The Counter medications, Medications were administered in the Emergency Department. See MAR. Independent interpretation of the following test(s) in the Emergency Department X-Ray: My interpretation is End up interpretation of x-ray reveals no obvious fracture. Historians other than the Patient: Spouse/Significant Other: Spouse. Care significantly affected by the following chronic conditions: Hypertension. Care significantly affected by the following Social Determinants of Health: Poor access to healthcare and/or lack of insurance, Poor access to transportation, Problems related to employment. Counseling: I had a detailed discussion with the patient and/or guardian regarding the historical points, exam findings, and any diagnostic results supporting the discharge/admit diagnosis, the presence of at least one elevated blood pressure reading (>120/80) during this emergency department visit, radiology results, the need for outpatient follow up, for definitive care, a family practitioner, a orthopedic surgeon, to return to the emergency department if symptoms worsen or persist or if there are any questions or concerns that arise at home. Special discussion: I have referred the patient to see his PCP for further evaluation of high blood pressure. I discussed with the patient/guardian in detail that at this point there is no indication for admission to the hospital. It is understood, however, that if the symptoms persist or worsen the patient needs to return immediately for re-evaluation. Based on the history and exam findings, there is no indication for further emergent testing or inpatient evaluation. I discussed with the patient/guardian the need to see the orthopedic surgeon for further evaluation of the symptoms. ED course: Report printed and given to patient. I also gave patient a CD with his x-ray on it to take with him to orthopedics as needed. All question answered. Lawrence wrap was given in ER. Strict ER precautions given. 07/17 09:55 Order name: Knee Left 3 View XRAY; Complete Time: 10:46 dr5 07/17 10:57 Order name: Lawrence Wrap; Complete Time: 11:08 dr5 Administered Medications: No medications were administered Disposition: 19:59 I was immediately available on-site in the Emergency Department for consultation in the ms3 care of the patient. Disposition Summary: 07/17/25 10:58 Discharge Ordered Notes: Location: Home dr5 Condition: Stable dr5 Diagnosis - Pain in left knee dr5 Followup: dr5 - With: Emergency Department - When: As needed - Reason: Worsening of condition Followup: dr5 - With: Private Physician - When: 1 - 2 days - Reason: Recheck today's complaints, Continuance of care, Re-evaluation by your physician Discharge Instructions: - Discharge Summary Sheet dr5 - RICE Therapy for Routine Care of Injuries dr5 - Acute Knee Pain, Adult dr5 Forms: - Work release form dr5 - Medication Reconciliation Form dr5 - Patient Portal Instructions dr5 - Leadership Thank You Letter dr5 Prescriptions: - Ibuprofen 800 mg Oral Tablet - take 1 tablet ORAL route every 12 hours As needed take with food; 20 tablet; dr5 Refills: 0, Product Selection Permitted Signatures: Dispatcher [employer] Estela Gonzalez, Magdy Payne RN, DO DO ms3 Martin Colon, SAND SIFTER-C SAND SIFTER-Cdr5
--- NOTE | 2025-07-17 10:58 | ER ---
Nurse's Notes [facility] Name: Meño Quiroga Age: 39 yrs Sex: Male : 1985 Arrival Date: 07/17/2025 Time: 09:51 Bed 14 Private MD: Diagnosis: Pain in left knee Presentation: 07/17 09:59 Chief complaint: Patient states: left knee pain X 2 days , denies trauma or injury. iw Coronavirus screen: At this time, the client does not indicate any symptoms associated with coronavirus-19. Ebola Screen: No symptoms or risks identified at this time. Initial Sepsis Screen: Does the patient meet any 2 criteria? No. Patient's initial sepsis screen is negative. Does the patient have a suspected source of infection? No. Patient's initial sepsis screen is negative. Risk Assessment: Do you want to hurt yourself or someone else? Patient reports no desire to harm self or others. Onset of symptoms was July 15, 2025. 09:59 Acuity: ASHLEE 4 iw 09:59 Method Of Arrival: Ambulatory iw Historical: - Allergies: 10:00 No Known Allergies; iw - PMHx: 10:00 Hypertensive disorder; iw - PSHx: 10:00 Appendectomy; iw - Immunization history:: Adult Immunizations. - Infectious Disease History:: Denies. - Social history:: Smoking status: Reported history of juuling and/or vaping. Screenin:07 [facility] ED Fall Risk Assessment (Adult) History of falling in the last 3 months, aa5 including since admission No falls in past 3 months (0 pts) Confusion or Disorientation No (0 pts) Intoxicated or Sedated No (0 pts) Impaired Gait No (0 pts) Mobility Assist Device Used No (0 pt) Altered Elimination No (0 pt) Score/Fall Risk Level 0 - 2 = Low Risk Oriented to surroundings, Maintained a safe environment, Educated pt \T\ family on fall prevention, incl call for assistance when getting out of bed, Assessed \T\ reinforced patient's understanding of fall precautions. Abuse screen: Denies threats or abuse. Nutritional screening: No deficits noted. Tuberculosis screening: No symptoms or risk factors identified. Assessment: 10:08 General: Appears comfortable, Behavior is calm, cooperative. Pain: Complains of pain in aa5 lateral aspect of left knee Pain does not radiate. Pain currently is 7 out of 10 on a pain scale. Quality of pain is described as aching, sharp, Pain began 1 day ago. Is continuous. Neuro: Level of Consciousness is awake, alert, obeys commands, Oriented to person, place, time, situation. Cardiovascular: Patient's skin is warm and dry. Respiratory: Airway is patent Respiratory effort is even, unlabored, Respiratory pattern is regular, symmetrical. GI: No signs and/or symptoms were reported involving the gastrointestinal system. : No signs and/or symptoms were reported regarding the genitourinary system. EENT: No signs and/or symptoms were reported regarding the EENT system. Derm: Skin is dry, Skin is normal, Skin temperature is warm. Musculoskeletal: Range of motion: intact in all extremities, Swelling absent Reports pain in lateral aspect of left knee. 11:08 Neuro: Level of Consciousness is awake, alert, obeys commands, Oriented to person, aa5 place, time, situation. Respiratory: Airway is patent Respiratory effort is even, unlabored, Respiratory pattern is regular, symmetrical. Derm: Skin is dry, Skin is normal, Skin temperature is warm. Vital Signs: 09:59 BP 154 / 110; Pulse 54; Resp 16; Temp 98.3; Pulse Ox 100% ; Weight 110.22 kg; Height 5 iw ft. 7 in. ; 10:11 BP 157 / 90; aa5 09:59 Body Mass Index 38.06 (110.22 kg, 170.18 cm) iw ED Course: 09:54 Patient arrived in ED. mr 09:54 [facility] 09:54 Magdy Jc DO is Attending Physician. dr5 10:00 Triage completed. iw 10:05 lGoria Ko, RN is Primary Nurse. aa5 10:08 Patient has correct armband on for positive identification. Bed in low position. Call aa5 light in reach. Side rails up X 1. Adult w/ patient. 10:33 Knee Left 3 View XRAY In Process Unspecified. EDMS 11:08 Lawrence wrap to left knee. aa5 11:08 No provider procedures requiring assistance completed. Patient did not have IV access aa5 during this emergency room visit. Administered Medications: No medications were administered Medication: 10:08 VIS not applicable for this client. aa5 Outcome: 10:58 Discharge ordered by . dr5 11:08 Discharged to home ambulatory, with significant other, aa5 11:08 Condition: stable 11:08 Discharge instructions given to patient, Instructed on discharge instructions, follow up and referral plans. medication usage, Demonstrated understanding of instructions, follow-up care, medications, Prescriptions given X 1, 11:28 Patient left the ED. aa5 Signatures: Dispatcher [employer] EDMS Stacy Burgos, Reg Reg mr Estela Fleming RN RN iw Calderon, Audri, RN RN aa5 Martin Colon, LOAN EXPEDITOR-C LOAN EXPEDITOR-Cdr5
[2025-07-17 15:36] VITALS: TEMP 98.3; O2SAT 100
[2025-07-17 15:37] VITALS: BP 157/90
== END 2025-07-17 11:28 | disposition home or self-care (01) ==
LOC: ER 09:51
DX: M25.562 Pain in left knee (principal)
CPT/HCPCS: 99283

== ENCOUNTER 2025-07-24 10:40 | Emergency (ER) | payer OTHER ==
[2025-07-24] MEDS ORDERED: ASPIRIN 81 MG CHEWABLE TABLET ONE (11:59)
[2025-07-24 12:12] LABS: Absolute Lymphocytes (CBC) 1.2 K/uL (0.7-4.9); Hematocrit 39.8 % (39.6-49.0); Hemoglobin 13.0 g/dL (13.6-17.9); MCH 27.1 pg (27.0-35.0); MCHC 32.7 g/dL (32.0-36.0); MCV 82.7 fL (80-100); MPV 7.9 fL (7.6-11.3); Nucleated RBC Absolute Count 0.0 (0-0); Nucleated Red Blood Cells % 0.1 % (0-0); RBC Red Blood Cell Count 4.81 M/uL (4.33-5.43); White Blood Count 5.60 thou/uL (4.3-10.9)
[2025-07-24 12:18] LABS: PT Prothrombin Time 14.9 SECONDS (10-13.0); Protime INR 1.33
[2025-07-24 12:26] LABS: METHAMPHETAM NEGATIVE (NEGATIVE); THC Cannibis NEGATIVE (NEGATIVE)
--- NOTE | 2025-07-24 12:37 | RAD REPORT ---
Procedure: Chest Single View HISTORY: Chest pain COMPARISON: 2013 FINDINGS: The lungs appear clear of acute infiltrate. No significant pleural effusion noted. The heart is normal size. IMPRESSION: No acute abnormality is displayed.
[2025-07-24 12:40] LABS: Anion Gap 6.7 mEq/L (5.0-15.0); BUN Blood Urea Nitrogen 11.0 mg/dL (7-18); Glucose Level 99.0 mg/dL (74-106); Potassium 3.7 mEq/L (3.5-5.1)
[2025-07-24 12:41] LABS: ALT/SGPT 16.0 U/L (16-61); AST/SGOT 12.0 U/L (15-37); Albumin 4.5 g/dL (3.4-5.0); Albumin/Globulin Ratio 1.4 (1.1-1.8); Alkaline Phosphatase 58.0 U/L (45-117); Bilirubin Indirect, Calculated 0.3 mg/dL (0.2-0.8); Globulin 3.2 g/dL (2.3-3.5)
[2025-07-24 12:42] LABS: Magnesium 2.1; Troponin High Sensitivity 4.9 (<58.9)
--- NOTE | 2025-07-24 13:05 | ER ---
Nurse's Notes [facility] Name: Meño Quiroga Age: 39 yrs Sex: Male : 1985 Arrival Date: 07/24/2025 Time: 10:40 Bed 14 Private MD: Diagnosis: Chest pain, unspecified;Essential (primary) hypertension Presentation: 07/24 10:46 Chief complaint: Patient states: HE IS HAVING AN IRREGULAR HEART BEAT, HANDS CRAMPING dd2 AND CHEST PAIN FOR A COUPLE DAYS. Coronavirus screen: At this time, the client does not indicate any symptoms associated with coronavirus-19. Ebola Screen: No symptoms or risks identified at this time. Initial Sepsis Screen: Does the patient meet any 2 criteria? No. Patient's initial sepsis screen is negative. Does the patient have a suspected source of infection? No. Patient's initial sepsis screen is negative. Risk Assessment: Do you want to hurt yourself or someone else? Patient reports no desire to harm self or others. Onset of symptoms was July 22, 2025. 10:46 Method Of Arrival: Ambulatory dd2 10:46 Acuity: ASHLEE 3 dd2 Triage Assessment: 10:49 General: Appears in no apparent distress. uncomfortable, Behavior is calm, cooperative, dd2 appropriate for age. Pain: Complains of pain in chest, right hand and left hand. Cardiovascular: Reports chest pain. Musculoskeletal: Reports pain in right hand and left hand CRAMPING IN BOTH HANDS. Historical: - Allergies: 10:49 No Known Allergies; dd2 - PMHx: 10:49 Hypertensive disorder; dd2 - PSHx: 10:49 Appendectomy; ANKLE SX (Appendectomy); dd2 - Immunization history:: Adult Immunizations up to date. - Infectious Disease History:: Denies. - Social history:: Smoking status: Reported history of juuling and/or vaping. Screenin:11 [facility] ED Fall Risk Assessment (Adult) History of falling in the last 3 months, ar8 including since admission No falls in past 3 months (0 pts) Confusion or Disorientation No (0 pts) Intoxicated or Sedated No (0 pts) Impaired Gait No (0 pts) Mobility Assist Device Used No (0 pt) Altered Elimination No (0 pt) Score/Fall Risk Level 0 - 2 = Low Risk. Abuse screen: Denies threats or abuse. Nutritional screening: No deficits noted. Tuberculosis screening: No symptoms or risk factors identified. Assessment: 11:47 Reassessment: Patient and/or family updated on plan of care and expected duration. Pain ll1 level reassessed. 12:15 General: Appears in no apparent distress. Behavior is calm, cooperative. ar8 12:15 Pain: Denies pain. Neuro: No deficits noted. Level of Consciousness is awake, alert, ar8 obeys commands, Oriented to person, place, time, situation. Cardiovascular: Reports palpitations. Cardiovascular: Rhythm is sinus bradycardia. Respiratory: No deficits noted. Airway is patent Respiratory effort is even, unlabored, Respiratory pattern is regular, symmetrical. Vital Signs: 10:46 BP 149 / 105; Pulse 54; Resp 16; Temp 98; Pulse Ox 100% ; Weight 104.33 kg; Height 5 dd2 ft. 7 in. ; Pain 3/10; 12:10 BP 142 / 97; Pulse 61; Resp 20; Pulse Ox 98% on R/A; Pain 0/10; ar8 13:03 BP 151 / 92; Pulse 59; Resp 20; Pulse Ox 100% on R/A; ar8 10:46 Body Mass Index 36.02 (104.33 kg, 170.18 cm) dd2 10:46 Pain Scale: Adult dd2 12:10 Pain Scale: Adult ar8 ED Course: 10:42 Patient arrived in ED. im 10:43 Julissa Urbina PA-C is PHCP. sb4 10:43 Magdy Jc DO is Attending Physician. sb4 10:49 Triage completed. dd2 10:49 Arm band placed on left wrist. dd2 11:47 Patient placed in an exam room, on a stretcher. ll1 11:57 Howard Lake, RN is Primary Nurse. ar8 12:06 EKG done, by ED staff. ts3 12:06 Initial lab(s) drawn, by laborer chicken farm, sent to lab. Inserted saline lock: 18 gauge in right ts3 antecubital area, using aseptic technique. Blood collected. Flushed with 10 mL NS. 12:07 Urine collected: clean catch specimen, clear, sent to lab. ts3 12:11 Bed in low position. Call light in reach. Side rails up X 1. Provided Education on: ar8 plan of care. Client placed on continuous cardiac and pulse oximetry monitoring. NIBP monitoring applied. 12:11 No provider procedures requiring assistance completed. Patient maintains SpO2 ar8 saturation greater than 95% on room air. 12:22 XRAY Chest (1 view) In Process Unspecified. EDMS 13:05 Long Khan MD is Referral Physician. sb4 13:24 IV discontinued, intact, bleeding controlled, No redness/swelling at site. Pressure ar8 dressing applied. Administered Medications: 12:12 Drug: Aspirin PO Chewable Tablet 324 mg PO once; 81 mg tablets x 4 Route: PO; ar8 13:13 Follow up: Response: No adverse reaction ar8 12:12 Drug: cloNIDine PO 0.1 mg PO once Route: PO; ar8 13:13 Follow up: Response: Blood pressure is lowered ar8 Medication: 12:11 VIS not applicable for this client. ar8 Outcome: 13:05 Discharge ordered by . sb4 13:24 Discharged to home ambulatory, ar8 13:24 Condition: stable 13:24 Discharge instructions given to patient, Instructed on discharge instructions, follow up and referral plans. Demonstrated understanding of instructions, follow-up care, 13:25 Patient left the ED. ar8 Signatures: Dispatcher [employer] EDMS Rosi Camarena, RN RN ll1 Julissa Urbina, PA-C PA-C sb4 Ryanne Mark DIANA, RN RN dd2 Luz Hernandez ts3 Howard Lake RN RN ar8
--- NOTE | 2025-07-24 13:06 | EDPHYS ---
Physician Documentation [facility] Name: Meño Quiroga Age: 39 yrs Sex: Male : 1985 Arrival Date: 07/24/2025 Time: 10:40 Bed 14 Private MD: ED Physician Magdy Jc HPI: 07/24 10:53 This 39 yrs old Black Male presents to ER via Ambulatory with complaints of Chest Pain, sb4 Palpitations, hand cramping. 11:06 Patient reports chest pain/tightness and palpitations over the past few days but got sb4 worse today. Reports associated hand cramping. Denies any prior episodes of this. Does report a history of hypertension, is noncompliant with his clonidine. Denies any cardiac history. Does report associated shortness of breath. Denies any dizziness, nausea, or vomiting. Does vape daily. Historical: - Allergies: 10:49 No Known Allergies; dd2 - PMHx: 10:49 Hypertensive disorder; dd2 - PSHx: 10:49 Appendectomy; ANKLE SX (Appendectomy); dd2 - Immunization history:: Adult Immunizations up to date. - Infectious Disease History:: Denies. - Social history:: Smoking status: Reported history of juuling and/or vaping. ROS: 11:06 Constitutional: Negative for fever, chills, and weight loss, sb4 11:06 Cardiovascular: Positive for chest pain, 11:06 Respiratory: Positive for shortness of breath, 11:06 MS/extremity: Positive for Per HPI, 11:06 All other systems are negative, Exam: 11:07 Head/Face: Normocephalic, atraumatic. Eyes: Extra-ocular motions intact. Periorbital sb4 areas with no swelling, redness, or edema. ENT: Mucous membranes moist. Cardiovascular: Regular rate and rhythm with a normal S1 and S2. Respiratory: No increased work of breathing, no retractions or nasal flaring. Abdomen/GI: Soft, non-tender, no distension. Neuro: Awake and alert, GCS 15, oriented to person, place, time, and situation. Motor strength 5/5 in all extremities. Sensory grossly intact. 11:07 Constitutional: The patient appears in no acute distress, alert, awake, Vital Signs: 10:46 BP 149 / 105; Pulse 54; Resp 16; Temp 98; Pulse Ox 100% ; Weight 104.33 kg; Height 5 dd2 ft. 7 in. ; Pain 3/10; 12:10 BP 142 / 97; Pulse 61; Resp 20; Pulse Ox 98% on R/A; Pain 0/10; ar8 13:03 BP 151 / 92; Pulse 59; Resp 20; Pulse Ox 100% on R/A; ar8 10:46 Body Mass Index 36.02 (104.33 kg, 170.18 cm) dd2 10:46 Pain Scale: Adult dd2 12:10 Pain Scale: Adult ar8 MDM: 10:43 Medical Screening Exam initiated sb4 11:07 Differential diagnosis: ACS, volume depletion, drug abuse, electrolyte abnormality, sb4 irregular EKG. 13:04 Data reviewed: vital signs, nurses notes, lab test result(s), EKG, radiologic studies, sb4 and as a result, I will discharge patient. Consideration of Admission/Observation Escalation of care including admission/observation considered. Care significantly affected by the following chronic conditions: Hypertension. Scoring Tools HEART Score: History: ECG: Age: Risk Factors: 1 or 2 risk factors (1), Troponin: Total Score = 1. Counseling: I had a detailed discussion with the patient and/or guardian regarding the historical points, exam findings, and any diagnostic results supporting the discharge/admit diagnosis, the presence of at least one elevated blood pressure reading (>120/80) during this emergency department visit, lab results, radiology results, the need for outpatient follow up, a construction plumber, to return to the emergency department if symptoms worsen or persist or if there are any questions or concerns that arise at home. Special discussion: Based on the patient's history, exam, and Dx evaluation, there is no indication for emergent intervention or inpatient Tx. It is understood by the patient/guardian that if the Sx's persist or worsen they need to return immediately for re-evaluation. 07/24 10:49 Order name: Basic Metabolic Panel sb4 07/24 10:49 Order name: CBC with Diff; Complete Time: 12:17 sb4 07/24 10:49 Order name: LFT's sb4 07/24 10:49 Order name: Magnesium sb4 07/24 10:49 Order name: NT PRO-BNP sb4 07/24 10:49 Order name: PT-INR; Complete Time: 12:26 sb4 07/24 10:49 Order name: Troponin HS sb4 07/24 10:49 Order name: UDS; Complete Time: 12:28 sb4 07/24 10:49 Order name: XRAY Chest (1 view); Complete Time: 12:39 sb4 07/24 10:49 Order name: Cardiac monitoring; Complete Time: 12:07 sb4 07/24 10:49 Order name: EKG - Nurse/Tech; Complete Time: 12: sb4 07/24 10:49 Order name: IV Saline Lock; Complete Time: 12: sb4 07/24 10:49 Order name: Labs collected and sent; Complete Time: 12: sb4 07/24 10:49 Order name: O2 Per Protocol; Complete Time: 12: sb4 07/24 10:49 Order name: O2 Sat Monitoring; Complete Time: 12: sb4 EC:00 Rate is 55 beats/min. Rhythm is regular, Sinus bradycardia. Left axis deviation noted. sb4 IL interval is normal at 172 msec. QRS interval is normal at 108 msec. QT interval is prolonged at 438 msec. No Q waves. T waves are Normal. T waves are Peaked. No ST changes noted. Clinical impression: No evidence of ischemia. Interpreted by me. Reviewed by me. Administered Medications: 12:12 Drug: Aspirin PO Chewable Tablet 324 mg PO once; 81 mg tablets x 4 Route: PO; ar8 13:13 Follow up: Response: No adverse reaction ar8 12:12 Drug: cloNIDine PO 0.1 mg PO once Route: PO; ar8 13:13 Follow up: Response: Blood pressure is lowered ar8 Disposition: 16:12 I was immediately available on-site in the Emergency Department for consultation in the ms3 care of the patient. Disposition Summary: 07/24/25 13:05 Discharge Ordered Notes: Location: Home sb4 Problem: new sb4 Symptoms: have improved sb4 Condition: Stable sb4 Diagnosis - Chest pain, unspecified sb4 - Essential (primary) hypertension sb4 Followup: sb4 - With: Long Khan MD - When: As needed - Reason: Recheck today's complaints, Re-evaluation by your physician Followup: sb4 - With: Emergency Department - When: As needed - Reason: Trouble breathing, Worsening of condition Discharge Instructions: - Discharge Summary Sheet sb4 - Nonspecific Chest Pain, Adult, [id number] sb4 - Hypertension, Adult, [id number] sb4 Forms: - Patient Portal Instructions sb4 - Leadership Thank You Letter sb4 Signatures: Dispatcher [employer] EDMS Magdy Jc, DO ms3 Julissa Urbina PA-C PA-C sb4 CARLI BRAXTON, RN RN dd2 Howard Lake, RN RN ar8 Corrections: (The following items were deleted from the chart) 10:50 10:50 BASIC METABOLIC PANEL+C.LAB.BRZ ordered. EDMS EDMS 10:50 10:50 CBC+H.LAB.BRZ ordered. EDMS EDMS 10:50 10:50 HEPATIC FUNCTION+C.LAB.BRZ ordered. EDMS EDMS 10:50 10:50 MAGNESIUM+C.LAB.BRZ ordered. EDMS EDMS 10:50 10:50 PROBNP+C.LAB.BRZ ordered. EDMS EDMS 10:50 10:50 PROTIME (+INR)+COAG.LAB.BRZ ordered. EDMS EDMS 10:50 10:50 Troponin High Sensitivity+C.LAB.BRZ ordered. EDMS EDMS 10:50 10:50 URINE DRUG SCREEN+UC.LAB.BRZ ordered. EDMS EDMS 10:50 10:50 Chest Single View+RAD.RAD.BRZ ordered. EDMS EDMS
[2025-07-24 16:35] VITALS: TEMP 98
[2025-07-24 16:39] VITALS: BP 151/92; O2SAT 100
[2025-07-24 17:34] LABS: NT PRO-BNP 14.0 pg/mL (<125)
== END 2025-07-24 13:25 | disposition home or self-care (01) ==
LOC: ER 10:40
DX: R07.9 Chest pain, unspecified (principal); I10 Essential (primary) hypertension
CPT/HCPCS: 36415; 71045; 80048; 80076; 80307; 83735; 83880; 84484; 85025; 85610; 93005